=== PATIENT | female | born 1960 | race Caucasian/White ===

== ENCOUNTER → 2017-07-28 | Outpatient (CLI) | payer BC | END | disposition home or self-care (01) | LOC: MAMMO 11:38 | DX: Z12.31 Encounter for screening mammogram for malignant neoplasm of breast (principal) ==

== ENCOUNTER → 2018-06-15 | Outpatient (CLI) | payer BC | END | disposition home or self-care (01) | LOC: US 10:13 | DX: I70.203 Unspecified atherosclerosis of native arteries of extremities, bilateral legs (principal); Z95.820 Peripheral vascular angioplasty status with implants and grafts; Z72.0 Tobacco use ==

== ENCOUNTER 2019-01-09 19:50 | Inpatient (IN) | payer BC ==
[~2019-01-09] VITALS: Ht 170.1 cm; Wt 56.8 kg
--- NOTE | ~2019-01-09 | PR ---
[place], [place] PROGRESS NOTE [facility]: [id number] UNIT #: [id number] ROOM: [facility] DOCTOR: TITI NULL,ALEXIS BIRTHDATE: [birth year] DOS: 01/11/2019 CARDIOLOGY FOLLOWUP VISIT NOTE REASON FOR VISIT: NSTEMI. This note is an addendum to the note done by Dr. Baptiste. I personally examined and assessed her today. Medications and allergies reviewed and I independently performed examination. SUBJECTIVE: The patient is somewhat drowsy and not answering questions as at bedside and discussed with him in detail. OBJECTIVE: PERTINENT CARDIAC EXAM: Regular rhythm, no S3, grade 1/6 systolic murmur. EXTREMITIES: Showed no edema. IMPRESSION: 1. Non-ST myocardial infarction. 2. Alcohol abuse with alcohol withdrawals. 3. Pneumonia. 4. Sinus tachycardia. RECOMMENDATIONS: 1. Continue current medications. 2. She was scheduled for cardiac catheterization on Monday. 3. Risk and complication of cardiac catheterization was discussed with her , Mark, who is at bedside and all questions were answered. ALEXIS WALLS MD CM:PNTRANS [id number] LAEXIS WALLS MD 01/12/19 1249 interface
--- NOTE | ~2019-01-09 | PR ---
[place], [place] PROGRESS NOTE NAME: ISADORA COLON [facility] #: [id number] UNIT #: [id number] ROOM: [facility] DOCTOR: SOUMYA NIETO MD BIRTHDATE: [birth year] DOS: 01/14/2019 CARDIOLOGY PROGRESS NOTE SUBJECTIVE: The patient was seen today 01/14/2019 at her bedside in the intensive care unit for followup of a recent non-ST elevation myocardial infarction and possible diastolic heart failure. She is a 58-year-old woman who presented to the hospital on 01/09/2019 for fatigue, decreased appetite and cough. There was a concern that she might have the flu. She reported subjective fevers, chills and dyspnea. Initially, her troponin level was significantly elevated at 7.17 and abdirashid to a peak of 9.54. Even though she did not have any acute EKG changes or chest discomfort. An echocardiogram was obtained, which showed normal left ventricular size and wall motion with stage 2 diastolic dysfunction. The patient does have a history of heavy alcohol abuse, and while in the hospital, did go into alcohol withdrawal. She is currently sedated and on BiPAP. The nurses report that she does become anxious and uncooperative when the medications wear off. She continues to deny chest pain, but she does not answer questions fully or appropriately. In the hospital, she has had episodes of pulmonary vascular congestion. She has been diuresed on a few occasions with some improvement. Plans had been made for her to undergo cardiac catheterization; however, when report was called to the [facility] labor relations officer she was turned down for catheterization today as being an inappropriate candidate. She cannot fully cooperate with the catheterization and is hemodynamically stable. The labor relations officer did recommend that she be medically stabilized prior to any transfer. PHYSICAL EXAMINATION: VITAL SIGNS: Today, her pulse is 115 and regular, blood pressure is 149/95. She is afebrile. NECK: Supple. She does have jugular distention with hepatojugular reflux. Carotids are full. LUNGS: Respirations are unlabored, but she does have BiPAP in place. Her chest has decreased breath sounds at the bases. HEART: Has a regular rhythm with an S4 gallop, but no S3 or obvious murmur. ABDOMEN: Soft. EXTREMITIES: Showed no edema. I reviewed her chest x-ray from yesterday and it does show apparent vascular congestion, which had worsened compared to a chest x-ray done on 01/12/2019. LABORATORY DATA: Hemoglobin today is 10.8, white count 12,400, platelet count 293,000. Blood gas this morning, pH 7.385, pCO2 of 40.4, pO2 of 157, bicarbonate 23.7. Sodium is 142 yesterday, potassium is 4.1, chloride was 110, CO2 of 22, BUN 29, creatinine 0.74, alkaline phosphatase was mildly elevated, but the other liver enzymes were normal and bilirubin was normal. Albumin was low at 2.3. Her initial drug screen was positive for cannabinoids only. [place], [place] PROGRESS NOTE NAME: ISADORA COLON UNIT #: [id number] ROOM: [facility] DOCTOR: SOUMYA NIETO MD BIRTHDATE: [birth year] IMPRESSION: 1. Presentation with flu-like symptoms. Influenza nasal swab was negative for influenza A and B. Blood cultures were also negative. 2. History of alcohol abuse. 3. Acute alcohol withdrawal. 4. Elevation in troponin consistent with acute myocardial injury and most suggestive of an acute myocardial infarction (NSTEMI). PLAN: The patient is hemodynamically stable, although she does appear to be mildly in heart failure. We will diurese her gently today and increase her beta josiane. She is also on an DIANA inhibitor, statin and aspirin. Once she is medically stabilized and has completed alcohol withdrawal then risk stratification and possible catheterization will be reconsidered. I thank the hospitalist physicians for asking our advice regarding her care. SOUMYA NIETO MD CM:PNTRANS [id number] SOUMYA NIETO MD 01/14/19 1439 interface
--- NOTE | ~2019-01-09 | EKG ---
[place], [place] ELECTROCARDIOGRAM REPORT NAME: ISADORA COLON UNIT #: [id number] ROOM: [facility] DOCTOR: EVENS DRAFT REPORT BIRTHDATE: [birth year] [facility] Test Date: 2019-01-10 Test Time: 00:57:42 Pat Name: ISADORA COLON Department: Room: [facility] Gender: F Drum Attendant: Obed Rodriguez : 1960 Requested By: CARLOS CHINCHILLA Order Number: [id number] Reading MD: Katelin Shah Measurements Intervals [place] Rate: 89 P: 52 OR: 144 QRS: 69 QRSD: 85 T: 75 QT: 382 QTc: 465 Interpretive Statements Sinus rhythm Repol abnrm suggests ischemia, diffuse leads Baseline wander in lead(s) V6 No previous ECG available for comparison Electronically Signed On 01-11-2019 12:46:41 PST by Katelin Shah CM:EKGRPT:ELECTROCARDIOGRAM REPORT 0057 1246 CARLOS CHINCHILLA EPIPHANY DRAFT REPORT CARLOS CHINCHILLA
--- NOTE | ~2019-01-09 | CON ---
[place], [place] REPORT OF CONSULTATION NAME: ISADORA COLON UNIT #: [id number] ROOM: [facility] DOCTOR: ALEXIS WALLS MD BIRTHDATE: [birth year] DOS: 01/10/2019 CARIOLOGY CONSULT REASON FOR CONSULTATION: Elevated cardiac enzymes. CLINICAL HISTORY: The patient is a 58-year-old patient presented to the hospital for some fatigue, body aches and nonproductive cough as well as headaches, but she had some contact with the patient's flu and her symptoms started afterwards, but she denies any chest pains. She was found to have elevated cardiac troponins and Cardiology consulted. She was also noted to have some possible alcohol withdrawals due to her significant alcohol abuse. At the time of examination, the patient was alert, but denies any chest pain or shortness of breath. She is somewhat answering appropriately. At home, she has no chest pain, shortness of breath, no heart palpitation, no dizziness, no PND, no orthopnea. No nausea, vomiting, diarrhea. No bladder or bowel symptoms. No neurologic symptoms, no visual symptoms. Occasional lightheadedness. REVIEW OF SYSTEMS: Review of the 10 systems negative except as mentioned above. Again, patient's mental status was somewhat clouded and no family at bedside. PAST MEDICAL HISTORY: Hypertension, dyslipidemia, varicose veins. PAST SURGICAL HISTORY: History of vascular stent. SOCIAL HISTORY: The patient has significant alcohol use. She states she drinks between 12-24 beers a day. History of marijuana use and also tobacco use of 1 to 1-1/2 pack a day. FAMILY HISTORY: Father from colon cancer and heart disease. Mother has diabetes. ALLERGIES: The patient is allergic to PENICILLIN. HOME MEDICATIONS: Reviewed. PHYSICAL EXAMINATION: VITAL SIGNS: Blood pressure 149/83, pulse 83, respiration is 20. Weight 86.8 kilos. GENERAL: Alert, comfortable, in no acute distress. HEAD AND NECK: Neck is supple, no distended neck veins, no carotid bruit. Pupils round, equal. No jaundice. Tongue was moist and pharynx clear. CHEST: Symmetrical, nontender. LUNGS: Few scattered rhonchi, but good air entry bilaterally. HEART: Regular rhythm, no S3. Grade 1/6 systolic murmur. ABDOMEN: Benign, nontender. Bowel sounds normal. EXTREMITIES: Showed no edema. Distal pulses palpable. [place], [place] REPORT OF CONSULTATION NAME: ISADORA COLON [facility] #: [id number] UNIT #: [id number] ROOM: [facility] DOCTOR: TITI NULL,ALEXIS BIRTHDATE: [birth year] SKIN: Warm and dry. No cyanosis, no clubbing. RECTAL: Deferred. GENITOURINARY: Deferred. NEUROLOGIC: The patient is alert, oriented. No focal neurologic deficit. REVIEW OF THE DIAGNOSTIC TESTS: EKG shows sinus tachycardia with lateral ST-T changes. CBC, chemistry imaging studies reviewed. Cardiac troponins are 7.1, 9.5, 8.6. Potassium 3.7, BUN 16, creatinine 0.78. WBC count 19.3 thousand. Hemoglobin 13.7, platelets 185,000. Total CPK 205 and CK-MB 46.8. IMPRESSION: 1. Non-ST elevation myocardial infarction. 2. Alcohol abuse with positive early withdrawals. 3. Hypertension. 4. Tobacco smoking. 5. Dyslipidemia. 6. History of diverticulosis. RECOMMENDATIONS: 1. The patient denies any chest pain. Her blood pressure and heart rates are stable. 2. A 2D echo was ordered. 3. Continue aspirin, beta blockers, and heparin. 4. I briefly discussed with her risk and benefits of cardiac catheterization. I doubt she has a total understanding for cardiac catheterization risks, benefits, I will wait for her family and we will discuss her cardiac catheterization and if the family and she agrees, we will plan for cardiac catheterization, Monday; however, currently she did not have any chest pain and vital signs are stable. 5. The 2D echo is pending. ALEXIS WALLS MD CM:CONSTR:REPORT OF CONSULTATION 01/11/19 0786 interface
--- NOTE | ~2019-01-09 | CON ---
[place], [place] REPORT OF CONSULTATION [id number] UNIT #: [id number] ROOM: [facility] DOCTOR: BANDAR NUNEZ MD BIRTHDATE: [birth year] DOS: 01/14/2019 PULMONARY CONSULTATION, EVALUATION AND MANAGEMENT CONSULTATION REQUESTED BY: Hospitalist service. REASON FOR CONSULTATION: For the assessment of her respiratory failure, change in mental status. The patient is currently admitted and treated in Intensive Care Unit. History could not be obtained for the patient. All the history documented in my consultation is review of the medical record done by other physician notes and the nurse's notes. HISTORY OF PRESENT ILLNESS: This is a 58-year-old white female patient who was admitted to the hospital from the date of 01/09/2019, patient has been admitted to the hospital as he has been noted lack of appetite with progressive fatigue and weak and nonproductive cough reported. Flu-like symptoms was reported. She has been admitted to the hospital. The patient noted with abnormal troponin as well with the respiratory problem. She was also noted with hyponatremia secondary to possible alcohol use for this patient and dependence, also treated for the alcohol withdrawal. She was planned for transfer today to [facility] in [place] for further cardiac workup, normal troponin, non-ST segment elevation myocardial infarction, in last evening the patient has been noted hypoxia with agitation. She has been started on the BiPAP and that has been used by the patient. She has not been noted opening her eyes while following vocal commands and noted somewhat restless and thrashing on the bed this morning. REVIEW OF SYSTEMS: Remaining systems were reviewed, cannot be completed because of inability to communicate with the patient. PAST MEDICAL HISTORY: 1. Noted with chronic long-term alcohol dependence. 2. Essential hypertension. 3. Hyperlipidemia. 4. Nicotine dependence. 5. Varicose veins. 6. Peripheral arterial disease. PAST SURGICAL HISTORY: Reported as peripheral vascular disease, intervention and stent placement. SOCIAL HISTORY: The patient noted chronic alcohol use to 10 beers a day since very young. The patient was also reported history of marijuana use. Tobacco use was reported for a long time. The patient up to 1.5 pack of cigarettes per day. She lives at home by herself. FAMILY HISTORY: Reported as father of complications of colon cancer. Mother living with history of diabetes mellitus reported. MEDICATIONS: From home were reported as Plavix, lisinopril and metoprolol [place], [place] REPORT OF CONSULTATION NAME: [facility] COLON [facility]: [id number] UNIT #: [id number] ROOM: [facility] DOCTOR: SHAHLA ANTONY MD,BANDAR BIRTHDATE: [birth year] tartrate. CURRENT MEDICATION: Which were administered for use of metoprolol tartrate, Protonix, Lipitor, Solu-Medrol 60 mg b.i.d., lisinopril, Mucinex, nicotine replacement patches, aspirin, DuoNeb, Rocephin, Zithromax and others. DRUG ALLERGIES: The patient noted ALLERGY TO PENICILLIN CAUSING HIVES. PHYSICAL EXAMINATION: GENERAL: A 58-year-old female patient currently noted somewhat restless on the bed, but no distress. BiPAP has been noted in place. Height was 5 feet 6 inches, weight of 125 pounds. BMI 19. VITAL SIGNS: The patient's temperature recorded normal. The patient in the last 48 hours, respiratory rate range between 12-40, the heart rate of 114-87 with sinus tachycardia, yesterday heart rate noted elevated up to 145 and a respiratory rate at that time were noted 40 at the time of the respiratory distress and agitation. The blood pressure ranging between 124/76-117/81. The pulse oxygen saturation on BiPAP is 94% saturation. Previously on 3 liters nasal cannula 98% saturation recorded. HEENT: Limited. Head was atraumatic. Eyes nonicterus. NECK: Supple. CARDIOVASCULAR: S1, S2 audible. LUNGS: The patient scattered crackles with decreased breath sounds, occasional wheezing. ABDOMEN: Soft, nontender. Bowel sounds present. EXTREMITIES: The patient was noted without any acute edema. MUSCULOSKELETAL: The patient was noted without any acute deformities. CENTRAL NERVOUS SYSTEM: Restless test noted. Further examination could not be performed. LABORATORY DATA: The admission labs for this patient, the influenza A and B nasal washing antigen 01/09/2019 was negative. CBC of 01/09/2019, WBC count 17,000, hemoglobin and hematocrit normal, platelet count was normal. Lactic acid at that time was 1.6. CMP on admission as well on 01/09/2018, glucose 136, BUN and creatinine normal, sodium 125, chloride of 93. The AST 68, ALT 126, alkaline phosphatase 411. ETOH level noted less than 3. Troponin first set 7.10. The maximal troponin was noted in 24 hours as 9.16. CMP that was done yesterday as BUN 29, creatinine normal, glucose 140. Sodium was normal. Potassium was normal. AST, ALT were normal. CBC that was done this morning, WBC count 12.8, hemoglobin 10.8, platelet count was normal 293,000. The arterial blood gas that I ordered, pH of 7.38, pCO2 of 40, pO2 of 157 with BiPAP. The radiology data testing which was done for this patient was personally reviewed from the PACs images. The chest x-ray that was done this morning, congestive noted with increased pulmonary venous congestion marking noted in the lungs. There was no significant visible pleural fluid were noted. There was an area of consolidation, infiltration. CT of the chest was also done on 01/09/2019 were reviewed, shows intrafissural nodule noted in the left major fissure measured as 1 x 0.5 cm in size with elliptical shape. In addition to that, there is a 4 mm nodule noted in the right minor fissure for the patient as well. Mild enlargement lymph node bilaterally as well as in the right hilar [place], [place] REPORT OF CONSULTATION NAME: ISADORA COLON UNIT #: [id number] ROOM: [facility] DOCTOR: SHAHLA ANTONY MD,[facility] BIRTHDATE: [birth year] area, which showed a dementia and lymph node 1.2 cm in size. A small basilar area of infiltration atelectasis was noted. IMPRESSION: 1. The patient who has been currently admitted to the hospital, was noted with multiple ongoing problems with the patient including acute respiratory failure with fluid overload, congestive heart failure. 2. Acute non-ST segment elevation myocardial infarction. 3. Hyponatremia related to the chronic alcohol dependence is resolved. 4. Alcohol withdrawal as well. There were no acute change in mental status. The patient with multifactorial secondary to medication use and other etiology. 5. FPC tobacco use. 6. Pulmonary nodule noted in the right and the left side as well as a lymph node enlargement. At this time required further assessment as an outpatient setting to exclude malignant process and other with history of longstanding tobacco use. 7. Acute exacerbation of chronic obstructive pulmonary disease, history of longstanding tobacco use. PLAN OF MANAGEMENT: The patient would be recommended about diuretic therapy p.r.n. to improve the current fluid overload, congestive heart failure. Avoid any excessive fluid supplementation to prevent the fluid overload. Continue the management of the current non-ST segment with history of myocardial infarction. The patient conservatively including the heparin, therapeutic dose, which is administered. The PTT noted therapeutic at 82 today. The BiPAP would be used as needed. Managing for any aspiration because the patient's change in mental status. Other additional treatment changes will be recommended based on progression of the illness. Continue nicotine replacement patches. Outpatient assessment with pulmonary nodule, lymph node biopsy needs to be done. Supportive care, other therapy, plan of management. The BiPAP could be used p.r.n. in case of further respiratory distress. The dose of the Solu-Medrol will be decreased to 40 mg b.i.d. dosing. Thanks for allowing me to participate in the care of this patient. BANDAR GALE MD CM:CONSTR:REPORT OF CONSULTATION 1245 01/22/19 0804 interface
--- NOTE | ~2019-01-09 | EKG ---
[place], [place] ELECTROCARDIOGRAM REPORT NAME: ISADORA COLON UNIT #: [id number] ROOM: [facility] DOCTOR: EVENS DRAFT REPORT BIRTHDATE: [birth year] [facility] Test Date: 2019-01-16 Test Time: 00:25:38 Pat Name: ISADORA COLON Department: Room: [place] [address] Gender: F Clinical Biostatistician: Nelly Lujan : 1960 Requested By: REILLY HAWTHORNE Order Number: [id number] Reading MD: Heraclio Burt MD Measurements Intervals [place] Rate: 116 P: 53 MO: 119 QRS: 70 QRSD: 78 T: QT: 337 QTc: 469 Interpretive Statements Sinus tachycardia Probable left atrial enlargement Probable LVH with secondary repol abnrm Baseline wander in lead(s) V6 Compared to ECG 01/11/2019 13:42:38 Atrial premature complex(es) no longer present Electronically Signed On 01-16-2019 16:51:14 PST by Heraclio Burt MD CM:EKGRPT:ELECTROCARDIOGRAM REPORT 0025 1651 REILLY FARRIS DRAFT REPORT REILLY HAWTHORNE DO
--- NOTE | ~2019-01-09 | EKG ---
[place], [place] ELECTROCARDIOGRAM REPORT NAME: ISADORA COLON UNIT #: [id number] ROOM: [facility] DOCTOR: EVENS DRAFT REPORT BIRTHDATE: [birth year] [facility] Test Date: 2019-01-10 Test Time: 05:12:28 Pat Name: ISADORA COLON Department: Room: [facility] Gender: F Medical Driver: Nelly Lujan : 1960 Requested By: CARLOS CHINCHILLA Order Number: [id number] Reading MD: Katelin Shah Measurements Intervals [place] Rate: 115 P: 46 [place]: 139 QRS: 59 QRSD: 84 T: -28 QT: 331 QTc: 458 Interpretive Statements Sinus tachycardia Lateral ST/T changes Electronically Signed On 01-11-2019 12:48:38 PST by Katelin Shah CM:EKGRPT:ELECTROCARDIOGRAM REPORT 0512 1248 CARLOS HORNER DRAFT REPORT CARLOS CHINCHILLA
--- NOTE | ~2019-01-09 | PR ---
[place], [place] PROGRESS NOTE NAME: ISADORA COLON [facility] #: [id number] UNIT #: [id number] ROOM: [facility] DOCTOR: SHAHLA ANTONY MD,BANDAR BIRTHDATE: [birth year] DOS: 01/15/2019 PULMONARY PROGRESS NOTE SUBJECTIVE: The patient remains in Intensive Care Unit, has been treated currently with oxygen supplementation, the BiPAP at times. She has not been reported with any acute hemodynamic instability, noted respiratory distress. The patient's mental status still remains unchanged. She has been reported with some abdominal problems. The patient has a CT scan of the abdomen completed last night. She has not been reported with any other major changes in mental status. She has been noted with hypertensive response with the tachycardia intermittently as well as low-grade fever. She has been noted with pneumonia in the lower lung and a CT scan of the abdomen and pelvis done with the lower portion of the CT of thorax included in that review. She has been currently getting broad-spectrum intravenous antibiotic for the hospital-acquired pneumonia, etiology is gram positive and gram-negative organisms. She has been previously receiving the Rocephin and Zithromax that has been discontinued. REVIEW OF SYSTEMS: Could not be completed since the patient does not give me any history or does not have any verbal communication at this time. She keeps her eyes closed, moans a few words as well. OBJECTIVE: VITAL SIGNS: The patient's temperature, max of 100.2 degrees Fahrenheit/99 degree Fahrenheit, respiratory rate of 16-34, heart rate of 132-102. HEENT: Shows head was atraumatic. Eyes nonicterus. NECK: Supple. CARDIOVASCULAR: S1, S2 audible. LUNGS: Noted basilar crackles. There was no wheezing. ABDOMEN: Soft, nontender. Bowel sounds present. It was flat. EXTREMITIES: Noted without acute edema. MUSCULOSKELETAL: Noted without any deformities. CENTRAL NERVOUS SYSTEM: The patient currently has change in mental status, but does not have any apparent focal neurologic deficit. The patient is moving upper and lower extremities at her own will. VISIBLE SKIN: No lesions or rashes. LABORATORY DATA: Assessed for this patient at today's visit. The ammonia level noted 16 this morning. Troponin 3.125 with gradual reduction noted from previous evaluation. CMP that was done on 01/15/2019; glucose 168, BUN 37, creatinine was normal. Sodium 148. Potassium was normal. Alkaline phosphatase 192. CBC that was done on 01/15/2019; WBC count 15.5, hemoglobin 11.7, hematocrit 34.9, platelet count was normal. Blood culture from the 01/09/2019 shows no bacterial growth. Final results reported at the present time. The CT scan of the abdomen and pelvis that was done early this morning was noted with evidence of area of consolidation, infiltration noted in the lungs bilaterally, small bilateral pleural fluid. The abdominal structure was described without any acute abnormalities. The chest x-ray that was done this morning was noted with interval change with infiltration noted in the lungs bilaterally with interstitial edema would be considered as well. Small bilateral pleural fluid [place], [place] PROGRESS NOTE NAME: ISADORA COLON UNIT #: [id number] ROOM: [facility] DOCTOR: BANDAR NUNEZ MD BIRTHDATE: [birth year] state not visible. IMPRESSION: The patient who has been currently noted with: 1. Acute aspiration pneumonia, hospital-acquired etiology. 2. History of chronic alcohol dependence with withdrawal of the alcohol. 3. Mental status, multifactorial. 4. Mild erythema secondary to diuretics as well. 5. Acute exacerbation of chronic obstructive pulmonary disease as well treated with the steroids and bronchodilators. PLAN OF MANAGEMENT: Agree with the use of meropenem and vancomycin, primary antibiotic. Discontinuation of other antibiotic has been ordered and the blood culture were obtained for this patient as well. Monitor hemodynamics. Follow the recommendation of Cardiology, non-ST segment myocardial infarction management conservatively at this time. She has been currently receiving the unfractionated therapeutic heparin noted with therapeutic PTT. Titrate supplementation of oxygen and maintain blood pressure 90% or greater. Other therapy, plan of management and care plan to be continued with the progression of illness. Keep the patient in the Intensive Care Unit at the present time. Further care and other therapy, plan and management. Past family, social, surgical history are reviewed, just they remain unchanged as well. The assessment and management were discussed with primary care attending of this patient, Alf Mccall. BANDAR GALE MD CM:PNTRANS [id number] BANDAR ANTONY MD 01/15/19 2319 interface
--- NOTE | ~2019-01-09 | EKG ---
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
--- NOTE | ~2019-01-09 | EKG ---
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
--- NOTE | ~2019-01-09 | EKG ---
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
[2019-01-09 19:54] VITALS: BP 129/83
[2019-01-09] MEDS ORDERED: METOPROLOL TAR100 M1 PO (20:06)
[2019-01-09] MEDS ORDERED: CLOPIDOGREL75 MG PO (20:06)
[2019-01-09] MEDS ORDERED: LISINOPRIL10 M1 PO (20:06)
[2019-01-09 20:37] LABS: HEMATOCRIT 40.7 % (37.0-47.0); HEMOGLOBIN 14.7 g/dl (12.0-16.0); MEAN CELL VOLUME 92.3 fl (81.0-99.0); MEAN CORPUSCULAR HGB 33.3 pg (27.0-31.0); MEAN CORPUSCULAR HGB CONC 36.1 g/dl (33.0-37.0); MEAN PLATELET VOLUME 10.2 fl (9.6-12.3); PLATELET COUNT AUTOMATED 176 10*3/uL (130-400); RED BLOOD COUNT 4.41 10*6/uL (4.10-5.10); RED CELL DISTRI WIDTH 12.2 % (0-14.5)
[2019-01-09 20:43] VITALS: BP 123/76
--- NOTE | 2019-01-09 20:43 | NUR ---
PT PROMPTED FOR URINE SPECIMEN.
[2019-01-09 20:58] LABS: PLATELET SUFFICIENCY NORMAL (NORMAL); TOTAL CELLS COUNTED 100 #CELLS
[2019-01-09 21:04] LABS: ALBUMIN 2.6 gm/dl (3.1-4.5); ALKALINE PHOSPHATASE 411 U/L (45-117); BUN 18 mg/dl (7-24); CHLORIDE 93 mmol/L (98-107); CREATININE 0.87 mg/dL (0.55-1.02); LIPASE 160 U/L (73-393); POTASSIUM 3.5 mmol/L (3.5-5.1); SGOT/AST 68 IU/L (3-35); SGPT/ALT 126 U/L (12-78); SODIUM 125 mmol/L (136-145); TOTAL PROTEIN 7.5 gm/dL (6.4-8.2)
[2019-01-09 21:09] LABS: ACETAMINOPHEN (TYLENOL) < 5.0 ug/ml (10-30); ETHYL ALCOHOL < 3.0 mg/dl (<3)
--- NOTE | 2019-01-09 21:18 | NUR ---
LAB CALLED WITH CRITICAL TROPONIN 7.170.FRANCK ALBARADO NOTIFIED.
--- NOTE | 2019-01-09 21:44 | NUR ---
PT PROMPTED AGAIN FOR URINE SPECIMEN.PT AMBULATORY TO RESTROOM, WITH PT.
--- NOTE | 2019-01-09 21:53 | NUR ---
URINE SPECIMEN COLLECTED VIA CLEAN CATCH,LABELED AND SENT TO LAB.IV FLUIDS CONTINUE TO INFUSE. REMAINS AT BEDSIDE.LIGHTS DIMMED FOR COMFORT.
[2019-01-09 21:54] VITALS: BP 155/92
[2019-01-09 21:57] LABS: BILIRUBIN 1+ (NEGATIVE); BLOOD 1+ (NEGATIVE); CLARITY SL CLOUDY (CLEAR); COLOR YELLOW (YELLOW); GLUCOSE NEGATIVE (NEGATIVE); KETONE 1+ (NEGATIVE); LEUKO ESTERASE TRACE (NEGATIVE); NITRITE NEGATIVE (NEGATIVE); UROBILINOGEN 0.2 E.U./dl (0.2-1.0)
[2019-01-09 22:06] LABS: BACTERIA 2+; HYALINE CAST 0-2
[2019-01-09 22:12] VITALS: BP 128/58
[2019-01-09 22:14] LABS: URINE AMPHETAMINES < 1000 (1000ng/ml); URINE BARBITURATES < 200 (200ng/ml); URINE BENZODIAZEPINES < 200 (200ng/ml); URINE CANNABINOIDS (THC) > 50 (50ng/ml); URINE COCAINE < 300 (300ng/ml); URINE METHADONE < 300 (300ng/ml); URINE OPIATES < 300 (300ng/ml)
[2019-01-09 22:15] LABS: URINE PHENCYCLIDINE < 25 (25ng/ml)
[2019-01-09 22:53] VITALS: BP 144/84
[2019-01-09 23:12] VITALS: BP 130/70
[2019-01-10] VITALS (9 sets, daily range): BP systolic 129–156; BP diastolic 67–91
[2019-01-10 00:11] LABS: CKMB 46.8 ng/ml (0.5-3.6); TROPONIN I 9.54 ng/ml (<0.045)
--- NOTE | 2019-01-10 00:11 | NUR ---
CRITICAL LABS TROP 9.540.. CKMB 46.8.. KELLY ALBARADO PA-C NOTIFIED.. AND NURSE OLIVIA NOTIFIED
[2019-01-10 00:24] LABS: ACT PARTIAL THROMBO TIME 26.8 SECONDS (20.8-31.5); INTERNATIONAL NORM RATIO 1.1 (2.0-3.5)
--- NOTE | 2019-01-10 01:30 | NUR ---
PT LEFT PASSWORD OF "CRISTHIANONY"
--- NOTE | 2019-01-10 01:38 | NUR ---
A 58 YEAR OLD FEMALE PATIENT, admitted to ICCU, under the services of JH Haider DO with a diagnosis of N-STEMI,HYPONATREMIA,BILATERAL PNEUMONIA,DEHYDRATION. Chief complaint is N/V/D SINCE MONDAY OR MONDAY. Patient arrived via CART WITH RN from ER. Monitor applied. Initial assessment completed. Vital signs taken and recorded. See assessment for past medical history, medications and allergies. Patient and/or family oriented to unit. [facility]U visitation policy reviewed. Clothing/patient valuable form completed. GHADA QUIGLEY
--- NOTE | 2019-01-10 01:42 | NUR ---
infusion of zithromax completed upon arrival to icu.
--- NOTE | 2019-01-10 03:32 | NUR ---
CALLED TO [facility] TO VERIFY CONSULT AND TO MAKE AWARE OF NEW TROPONIN RESULT. DR WALLS FACILITIES SUPERVISOR.
--- NOTE | 2019-01-10 03:39 | NUR ---
SPOKE WITH DR WALLS ABOUT LABS AND PATIENTS CONDITION. NO NEW ORDERS RECIEVED
--- NOTE | 2019-01-10 05:27 | NUR ---
PATIENT MEDICATED WITH ATIVAN PER DRS ORDERS FOR RESTLESSNESS AND ANXIETY. SEE EMAR.
--- NOTE | 2019-01-10 05:30 | NUR ---
DR. HAWTHORNE HERE AND TALKED WITH DR. WALLS OVER PHONE REGARDING PT RECENT EKG AND CHANGES.
[2019-01-10 05:43] LABS: ALBUMIN 2.3 gm/dl (3.1-4.5); ALKALINE PHOSPHATASE 357 U/L (45-117); BUN 16 mg/dl (7-24); CHLORIDE 101 mmol/L (98-107); CHOLESTEROL 111 mg/dL (<200); CREATININE 0.78 mg/dL (0.55-1.02); PHOSPHOROUS 3.3 mg/dL (2.5-4.9); POTASSIUM 3.7 mmol/L (3.5-5.1); SGOT/AST 45 IU/L (3-35); SGPT/ALT 92 U/L (12-78); SODIUM 130 mmol/L (136-145); TOTAL PROTEIN 6.8 gm/dL (6.4-8.2); TRIGLYCERIDES 130 mg/dl (<150); VLDL CHOLESTEROL 26 mg/dL (6-40)
[2019-01-10 05:44] LABS: CPK 186 U/L (26-192); FREE T4 1.56 ng/dl (0.76-1.46); HDL CHOLESTEROL 19 mg/dl (40-60); LDL CHOLESTEROL 66 mg/dL (9-159)
[2019-01-10 06:00] LABS: HEMATOCRIT 39.5 % (37.0-47.0); HEMOGLOBIN 13.7 g/dl (12.0-16.0); MEAN CELL VOLUME 93.8 fl (81.0-99.0); MEAN CORPUSCULAR HGB 32.5 pg (27.0-31.0); MEAN CORPUSCULAR HGB CONC 34.7 g/dl (33.0-37.0); MEAN PLATELET VOLUME 10.8 fl (9.6-12.3); PLATELET COUNT AUTOMATED 185 10*3/uL (130-400); RED BLOOD COUNT 4.21 10*6/uL (4.10-5.10); RED CELL DISTRI WIDTH 12.3 % (0-14.5); WHITE BLOOD COUNT 19.3 10*3/uL (4.8-10.8)
[2019-01-10 06:42] LABS: ACT PARTIAL THROMBO TIME 46.7 SECONDS (20.8-31.5); INTERNATIONAL NORM RATIO 1.1 (2.0-3.5)
[2019-01-10 07:00] LABS: BASOPHILS 1 % (0-1); PLATELET SUFFICIENCY NORMAL (NORMAL); TOTAL CELLS COUNTED 100 #CELLS
[2019-01-10 07:01] LABS: BURR CELLS MODERATE
--- NOTE | 2019-01-10 07:56 | NUR ---
PATIENT VERY RESTLESS AND AGITATED. PULLING AT GOWN,COVERS. KEEPS SAYING "FUCK"! THRASHING AROUND IN BED. RN ATTEMPTING TO REORIENT PATIENT. UNSUCCESSFUL. MEDICATED WITH ATIVAN IV PER PRN ORDER. WILL CONTINUE TO MONITOR.
[2019-01-10 08:28] LABS: VITAMIN D, 25-HYDROXY 17.9 ng/mL (30-100)
--- NOTE | 2019-01-10 08:34 | NUR ---
PATIENT OFF THE FLOOR FOR OTHER TESTING, NOT AVAILABLE FOR ECHO.
--- NOTE | 2019-01-10 09:00 | NUR ---
Tire Rebuilder in to see patient. She is currently not in her room. Will follow up at a later time.
--- NOTE | 2019-01-10 12:26 | NUR ---
PATIENT RESTLESS/AGITATED AGAIN AT THIS TIME. PULLING AT IVS, PULLING GOWN OFF. HR INCREASING TO 120'S. MEDICATED WITH ATIVAN PER PRN ORDER. WILL CONTINUE TO MONITOR.
--- NOTE | 2019-01-10 17:54 | NUR ---
PATIENT RESTLESS AGAIN AT THIS TIME. HR IN THE 130-140'S. MEDICATED WITH ATIVAN PER PRN ORDER. WILL CONTINUE TO MONITOR.
--- NOTE | 2019-01-10 21:40 | NUR ---
PATIENT MEDIATED WITH ATIVAN PER DRS ORDERS SEE EMAR
--- NOTE | 2019-01-10 23:30 | NUR ---
PATIENT VERY RESTLESS AND FIDGETING AT THIS TIME. IV ATIVAN GIVEN PER DRS ORDERS. SEE EMAR. RN WILL CONTINUE TO MONITOR THIS PATIENT.
[2019-01-11] VITALS (12 sets, daily range): BP systolic 110–164; BP diastolic 65–105
--- NOTE | 2019-01-11 | NUR ---
DR GRIMALDO MADE AWARE OF ELEVATED HEARTRATE AND ELEVATED BP READING. ORDERS RECIEVED.
--- NOTE | 2019-01-11 00:14 | NUR ---
PATIENT GIVEN ONE TIME DOSE OF ATIVAN PER DRS ORDERS. SEE EMAR. RN WILL CONTINUE TO MONITOR
--- NOTE | 2019-01-11 00:20 | NUR ---
DR GRIMALDO ON THE FLOOR TO ASSESS PATIENT AT THIS TIME. IV FLUIDS STOPPED PER DRS ORDERS. 3L NASAL CANNULA APPLIED TO PATIENT D/T PO2 DROPPING TO 88% AFTER ATIVAN ADMINISTRATION. PO2 LEVEL CURRENTLY AT 92% PATIENT ALSO AUDIBLY WHEEZING AND C/O SHORTNESS OF BREATH. RN WILL CONTINUE TO MONITOR THIS PATIENT
--- NOTE | 2019-01-11 01:28 | NUR ---
PATIENT MEDICATED WITH 1 TIME DOSE OF ATIVAN PER DRS ORDERS. SEE EMAR. RN WILL CONTINEU TO KAITLYNN
--- NOTE | 2019-01-11 04:10 | NUR ---
PATIENT MEDICATED WITH ATIVEN PER DRS ORDERS. RN WILL CONTINUE TO MONITOR
[2019-01-11 05:57] LABS: ALBUMIN 2.1 gm/dl (3.1-4.5); ALKALINE PHOSPHATASE 280 U/L (45-117); BUN 13 mg/dl (7-24); CHLORIDE 108 mmol/L (98-107); PHOSPHOROUS 3.4 mg/dL (2.5-4.9); POTASSIUM 3.6 mmol/L (3.5-5.1); SGOT/AST 23 IU/L (3-35); SGPT/ALT 57 U/L (12-78); SODIUM 136 mmol/L (136-145); TOTAL PROTEIN 6.3 gm/dL (6.4-8.2)
[2019-01-11 06:19] LABS: BASO % 0.3 % (0.0-1.0); EOS # 0.4 10*3/uL (0.0-0.4); EOS % 2.8 % (1.0-4.0); HEMATOCRIT 35.7 % (37.0-47.0); HEMOGLOBIN 12.3 g/dl (12.0-16.0); LYMPH # 1.8 10*3/uL (1.3-4.4); LYMPH % 11.6 % (27.0-41.0); MEAN CELL VOLUME 94.7 fl (81.0-99.0); MEAN CORPUSCULAR HGB 32.6 pg (27.0-31.0); MEAN CORPUSCULAR HGB CONC 34.5 g/dl (33.0-37.0); MEAN PLATELET VOLUME 10.8 fl (9.6-12.3); MONO # 0.4 10*3/uL (0.1-1.0); MONO % 2.8 % (3.0-9.0); NEUT # 12.8 10*3/uL (2.3-7.9); NEUT % 81.4 % (47.0-73.0); PLATELET COUNT AUTOMATED 188 10*3/uL (130-400); RED BLOOD COUNT 3.77 10*6/uL (4.10-5.10); RED CELL DISTRI WIDTH 12.9 % (0-14.5); WHITE BLOOD COUNT 15.7 10*3/uL (4.8-10.8)
--- NOTE | 2019-01-11 06:38 | NUR ---
PATIENT MEDICATED WITH ATIVAN PER DRS ORDERS. SEE EMAR/.
--- NOTE | 2019-01-11 07:50 | NUR ---
Shift chart check completed.24 HR chart check completed.
--- NOTE | 2019-01-11 08:22 | NUR ---
ON ASSESSMENT PT AROUSES TO HER NAME, DALIA BUT SAYS "NO" TO PAIN, SHORTNESS OF BREATH, OR NAUSEA. ABLE TO SAY SHE'S IN "[place]" AND WHEN QUESTIONED FURTHER ABLE TO SAY "HOSPITAL". BUT "NO" WHEN I ASKED IF SHE KNOWS WHY SHE'S HERE. HEPARIN DRIP CONTINUES AT 16UNITS/KG/HR. REMAINS TACHYCARDIC AT ALL TIMES. PULSE OX 97% ON 3L/MIN, TITRATED DOWN TO 2L/MIN.
--- NOTE | 2019-01-11 08:51 | NUR ---
WAS ABLE TO GET HER TO TAKE HER ORAL AM MEDS. SHE DOES CHEW SOME. APPLESAUCE USED TO FACILITATE.
--- NOTE | 2019-01-11 09:36 | NUR ---
JAN REYES AND TITI HAVE VISITED. NO PLANS FOR HEART CATH TODAY AT THIS TIME. NO SEIZURE ACTIVITY. NO OBVIOUS HALLUCINATIONS.
--- NOTE | 2019-01-11 11:14 | NUR ---
DR WALLS HAS VISITED. TALKED WITH PT'S ABOUT PLAN OF CARE.
--- NOTE | 2019-01-11 11:48 | NUR ---
Ent Nurse in to see patient. She is not able to appropriately answer questions. Will follow up at a later time.
--- NOTE | 2019-01-11 12:51 | NUR ---
PT'S HELPED HER TO EAT 5 BITES OF POTATO SOUP, AND 3 BITES OF YOGURT. TURNED, BRIEF CHANGED, AND REPOSITIONED IN BED. SHE DENIES ANY HALLUCINATIONS. NO SEIZURE ACTIVITY. HR BETTER SINCE ORAL METOPROLOL.
--- NOTE | 2019-01-11 13:08 | NUR ---
PT HAS INTERMITTENT WHEEZE.
--- NOTE | 2019-01-11 13:34 | NUR ---
PT HAD SUDDEN ONSET TACHYPNEA WITH WHEEZE. PULSE OX 87% ON NC 3L/MIN, INCREASED TO 4L/MIN, THEN A 50% VENTURI, THEN 100% NON-REBREATHER. DR ERVIN CALLED TO THE BEDSIDE, WHO THEN CALLED DR REYES AND DR WALLS'S RESIDENT, DR GRIGSBY.
[2019-01-11 13:48] LABS: ABG BASE EXCESS -7.5 mmol/L (-2.0-2.0); ABG O2 SATURATION 93.7 % (95-97); ARTERIAL BLOOD GAS PCO2 31.7 mmHg (35-45); ARTERIAL BLOOD GAS PH 7.345 (7.35-7.45); ARTERIAL BLOOD GAS PO2 70.6 mmHg (80-90)
--- NOTE | 2019-01-11 14:08 | NUR ---
ABG'S WERE DONE. STAT EKG AND PCXR DONE. IV LASIX GIVEN PER ORDER AND #16 YUEN CATHETER INSERTED. SHE HAD ATIVAN 0.5MG IV FOR ANXIETY. AT THIS TIME SHE IS RESTING EASIER. HR 100. PULSE OX 100%. HER HAS ARRIVED AT THE BEDSIDE AND DR ERVIN TALKED WITH HIM.
[2019-01-11 14:12] LABS: ALBUMIN 2.4 gm/dl (3.1-4.5); ALKALINE PHOSPHATASE 304 U/L (45-117); BUN 16 mg/dl (7-24); CHLORIDE 105 mmol/L (98-107); CREATININE 0.77 mg/dL (0.55-1.02); POTASSIUM 3.9 mmol/L (3.5-5.1); SGOT/AST 21 IU/L (3-35); SGPT/ALT 60 U/L (12-78); SODIUM 134 mmol/L (136-145); TOTAL PROTEIN 7.2 gm/dL (6.4-8.2)
--- NOTE | 2019-01-11 14:18 | NUR ---
DR ERVIN AWARE OF CRITICAL VALUE OF TROPONIN I WHICH IS 5.73, WHICH IS LOWER THAN THE LAST 8.62.
[2019-01-11 14:50] LABS: HEMATOCRIT 37.7 % (37.0-47.0); HEMOGLOBIN 12.8 g/dl (12.0-16.0); MEAN CELL VOLUME 95.4 fl (81.0-99.0); MEAN CORPUSCULAR HGB 32.4 pg (27.0-31.0); MEAN PLATELET VOLUME 10.7 fl (9.6-12.3); RED BLOOD COUNT 3.95 10*6/uL (4.10-5.10); WHITE BLOOD COUNT 22.1 10*3/uL (4.8-10.8)
[2019-01-11 14:56] LABS: PLATELET COUNT AUTOMATED 269 10*3/uL (130-400)
--- NOTE | 2019-01-11 15:33 | NUR ---
RESPIRATORY THERAPY HERE AND ABG'S DONE PER ORDER. REMAINS AT THE BEDSIDE. PT REMAINS ON BIPAP.
[2019-01-11 15:40] LABS: ABG BASE EXCESS -4.2 mmol/L (-2.0-2.0); ABG HCO3 18.7 mmol/l (22-26); ABG O2 SATURATION 99.3 % (95-97); ARTERIAL BLOOD GAS PH 7.425 (7.35-7.45)
[2019-01-11 15:43] LABS: ATYPICAL LYMPHS 1 % (0-0); BASOPHILS 1 % (0-1); PLATELET SUFFICIENCY NORMAL (NORMAL); TOTAL CELLS COUNTED 100 #CELLS
--- NOTE | 2019-01-11 16:17 | NUR ---
RESPIRATORY THERAPY ADJUSTED THE BIPAP.
--- NOTE | 2019-01-11 16:45 | NUR ---
DR ERVIN AWARE OF CRITICAL TROPONIN OF 5.320 WHICH IS LOWER THAN THE LAST ONE. SHE CANCELLED THE THIRD TROPONIN.
--- NOTE | 2019-01-11 17:10 | NUR ---
DR REYES REQUESTED I GIVE PT IV ATIVAN HER HR BACK TO 120'S AND SHE WAS RESTLESS. THIS HAS BEEN GIVEN. AT BEDSIDE. EXPLANATIONS TO HIM.
--- NOTE | 2019-01-11 17:35 | NUR ---
RESTING SOMEWHAT EASIER SINCE THE IV ATIVAN. FAMILY AT BEDSIDE. SHE DID HAVE A SHORT BREAK FROM THE BIPAP FOR A DRINK OF WATER BUT HER RESP RATE INCREASED.
--- NOTE | 2019-01-11 18:39 | NUR ---
CAME INTO ICCU YELLING THAT NO ONE WATCHING HIS SHE HAD BECOME RESTLESS AND SCOOTED TO THE BED WITH A RECORDED BP [address] ERVIN AT THE BEDSIDE. ATIVAN 0.5MG IV GIVEN PER DR ERVIN'S REQUEST.
--- NOTE | 2019-01-11 18:53 | NUR ---
GUY SINCE IV ATIVAN. BP 110/65.
--- NOTE | 2019-01-11 19:52 | NUR ---
NUMEROUS FAMILY MEMBERS AT BEDSIDE. PT WAS REMOVED FROM BIPAP PER 'S REQUEST AT 1941 AND PLACED ON NC4. HER PULSE OX REMAINS 96-100%. HR FROM 97/MIN TO 120'S WITH STIMULI FROM FAMILY MEMBERS.
--- NOTE | 2019-01-11 21:53 | NUR ---
UNDER PAD, AGAIN, CHANGED PT WIGGLED DOWN TOWARD BOTTOM OF BED. PT REPOSITIONED. HOB ELEVATED. ATIVAN AT 2030 ONLY MILDLY EFFECTIVE FOR AGITATION. DR HAWTHORNE HERE...NOTIFIED THAT PT HR IN 120'S.
[2019-01-12] VITALS: BP 155/83
--- NOTE | 2019-01-12 02:26 | NUR ---
ATIVAN GIVEN AT 0125 FOR RESTLESSNESS, TACHYCARDIA AND TACHYPNEA NOT QUITE EFFECTIVE YET. HR 119/MIN, RR 30/MIN.
--- NOTE | 2019-01-12 02:46 | NUR ---
ATIVAN EFFECTIVE...PT DOZING. HR 108/MIN, RR 28/MIN.
[2019-01-12 04:00] VITALS: BP 162/88
--- NOTE | 2019-01-12 04:03 | NUR ---
ATIVAN GIVEN AT 0330 EFFECTIVE FOR RESTLESSNESS AND IMPROVES HR TO LOW 100'S, RR TO UPPER 20'S.
--- NOTE | 2019-01-12 04:56 | NUR ---
PT HAD BEEN MOANING, HR 140'S, RR 40/MIN. REMOVED FROM BIPAP AND PLACED ON NC4. APPEARS MORE RELAXED. MOUTH MOISTENED AGAIN WITH ICE CHIPS, HR DOWN TO 120'S, RR 30/MIN AND PULSE OX 94%.
--- NOTE | 2019-01-12 05:03 | NUR ---
DR MARINE KOHLER. INFORMED OF PT HR 140'S. SHE OK'D TO GIVE 10 AM DOSE OF LOPRESSOR NOW.
--- NOTE | 2019-01-12 05:21 | NUR ---
ATIVAN GIVEN AT [address] HAWTHORNE. SHE TOOK HER PO AM LOPRESSOR WITHOUT DIFFICULTY IN APPLESAUCE. SHE CRUNCHES ON ICE CHIPS WITHOUT PROBLEM WELL.
[2019-01-12 05:59] LABS: BASO % 0.2 % (0.0-1.0); EOS # 0.1 10*3/uL (0.0-0.4); EOS % 0.5 % (1.0-4.0); HEMATOCRIT 34.6 % (37.0-47.0); HEMOGLOBIN 11.6 g/dl (12.0-16.0); LYMPH % 10.8 % (27.0-41.0); MEAN CELL VOLUME 95.3 fl (81.0-99.0); MEAN CORPUSCULAR HGB CONC 33.5 g/dl (33.0-37.0); MEAN PLATELET VOLUME 10.5 fl (9.6-12.3); MONO # 0.7 10*3/uL (0.1-1.0); MONO % 3.7 % (3.0-9.0); NEUT # 15.3 10*3/uL (2.3-7.9); NEUT % 83.6 % (47.0-73.0); PLATELET COUNT AUTOMATED 248 10*3/uL (130-400); RED BLOOD COUNT 3.63 10*6/uL (4.10-5.10); RED CELL DISTRI WIDTH 12.9 % (0-14.5); WHITE BLOOD COUNT 18.3 10*3/uL (4.8-10.8)
--- NOTE | 2019-01-12 06:05 | NUR ---
PTT 41.2 HEPARIN GTT INCREASED 2 UNITS/KG/HR TO 18. NEXT PTT AT 12 NOON.
[2019-01-12 06:06] LABS: ALBUMIN 2.3 gm/dl (3.1-4.5); ALKALINE PHOSPHATASE 242 U/L (45-117); BUN 21 mg/dl (7-24); CHLORIDE 106 mmol/L (98-107); CREATININE 0.86 mg/dL (0.55-1.02); PHOSPHOROUS 3.7 mg/dL (2.5-4.9); POTASSIUM 3.5 mmol/L (3.5-5.1); SGOT/AST 14 IU/L (3-35); SGPT/ALT 43 U/L (12-78); SODIUM 139 mmol/L (136-145)
[2019-01-12 06:14] LABS: TOTAL PROTEIN 6.7 gm/dL (6.4-8.2)
--- NOTE | 2019-01-12 08:15 | NUR ---
PT ALERT TO PERSON ONLY AT THIS TIME. PT MAONING BUT UNABLE TO TELL ME WHY. VSS. BILATERAL I/E WHEEZING NOTED THROUGHOUT LUNG FIEDLS. OCCASIONAL MOIST COUGH NOTED. ABD SOFT WITH ACTIVE BOWEL SOUNDS. ALPA HERNÁNDEZ FOR STRAW COLORED URINE. DR ERVIN IN TO SEE PT. SHE ORDERED FOR PT TO HAVE PRN ATIVAN. ATIVAN GIVEN PER ORDER.
--- NOTE | 2019-01-12 08:35 | NUR ---
PT RESTING BETTER. EARLIER ATIVAN EFFECTIVE.
--- NOTE | 2019-01-12 10:06 | NUR ---
PT'S IN TO VISIT. UPDATED HIM ON PT'S CONDITIONA ND PLAN OF CARE. HIS QUESTIONS WERE ANSWERED.
--- NOTE | 2019-01-12 11:40 | NUR ---
PT RESTLESS,AGITATED AND MOANING. PT AND FAMILY AGREED FOR PRN ATIVAN. MEDICATED PT PER PRN ORDER WITH IV ATIVAN.
--- NOTE | 2019-01-12 12:35 | NUR ---
PT CONTIUES TO MOAN. FAMILY AT BEDSIDE. EARLEIR ATIVAN DOES NOT SEEM EFFECTIVE.
--- NOTE | 2019-01-12 15:11 | NUR ---
MEDICATED PT PER ONE TIME ORDER WITH MORPHINE IV FOR PT'S C/O GENERALIZED PAIN. PT IS UNABLE TO RATE PAIN ON PAIN SCALE AT THIS TIME. PT'S FAMILY REMAINS AT BEDSIDE.
--- NOTE | 2019-01-12 15:45 | NUR ---
PT RESTING WELL. EARLIER MORPHINE EFFECTIVE.
[2019-01-12 16:00] VITALS: BP 138/84
--- NOTE | 2019-01-12 17:56 | NUR ---
MEDICATED PT PER PRN ORDER WITH IV ATIVAN FOR PT'S INCREASED AGITATION AND RESTLESSNESS. DR ERVIN AND DR STONE INT O SEE PT. UPDATED THEM ON PT'S CONDITIONA ND PLAN OF CARE. NEW ORDERS RECEIVED.
--- NOTE | 2019-01-12 18:04 | NUR ---
PT RESTING. EARLIER ATIVAN EFFECTIVE.
--- NOTE | 2019-01-12 18:52 | NUR ---
CHART CHECK COMPLETE.
--- NOTE | 2019-01-12 19:13 | NUR ---
PTT 54.1. NO CHANGE IN HEPARIN GTT PER HEPARIN PROTOCOL. NEXT PTT IN AM.
[2019-01-12 20:00] VITALS: BP 139/83
[2019-01-12 21:00] VITALS: BP 112/57
--- NOTE | 2019-01-12 21:14 | NUR ---
DILAUDID GIVEN AT 2039 FOR PT MOANING AND SAYING "YES" WHEN ASKED IF IN PAIN. EFFECTIVE. PT DOZING, HR 107/MIN, RR 20/MIN, PULSE OX 96%.
[2019-01-13] VITALS: BP 107/68
--- NOTE | 2019-01-13 02:43 | NUR ---
PT SLEEPING. HR 90'S, RR 19/MIN, PULSE OX 98%.
--- NOTE | 2019-01-13 02:46 | NUR ---
MORPHINE WAS EFFECTIVE...PT DOZING, BUT AWAKENS EASILY. BODY RELAXED.
[2019-01-13 03:18] VITALS: BP 117/81
--- NOTE | 2019-01-13 03:19 | NUR ---
DILAUDID GIVEN AT 0250 FOR RESTLESSNESS/DISCOMFORT WAS EFFECTIVE. PT DOZING...AWAKENS TO VOICE...BODY RELAXED.
[2019-01-13 06:15] LABS: BASO % 0.1 % (0.0-1.0); EOS % 0.3 % (1.0-4.0); HEMATOCRIT 32.1 % (37.0-47.0); HEMOGLOBIN 10.5 g/dl (12.0-16.0); LYMPH # 2.1 10*3/uL (1.3-4.4); LYMPH % 14.7 % (27.0-41.0); MEAN CELL VOLUME 97.3 fl (81.0-99.0); MEAN CORPUSCULAR HGB 31.8 pg (27.0-31.0); MEAN CORPUSCULAR HGB CONC 32.7 g/dl (33.0-37.0); MEAN PLATELET VOLUME 10.5 fl (9.6-12.3); MONO # 0.6 10*3/uL (0.1-1.0); MONO % 4.5 % (3.0-9.0); NEUT % 79.2 % (47.0-73.0); PLATELET COUNT AUTOMATED 268 10*3/uL (130-400); RED CELL DISTRI WIDTH 13.4 % (0-14.5)
[2019-01-13 06:29] LABS: ALBUMIN 2.3 gm/dl (3.1-4.5); BUN 29 mg/dl (7-24); CHLORIDE 110 mmol/L (98-107); CREATININE 0.74 mg/dL (0.55-1.02); POTASSIUM 4.1 mmol/L (3.5-5.1); SGOT/AST 21 IU/L (3-35); SGPT/ALT 39 U/L (12-78); SODIUM 142 mmol/L (136-145)
[2019-01-13 06:32] LABS: ALKALINE PHOSPHATASE 202 U/L (45-117); PHOSPHOROUS 4.3 mg/dL (2.5-4.9); TOTAL PROTEIN 6.5 gm/dL (6.4-8.2)
--- NOTE | 2019-01-13 06:49 | NUR ---
PTT 57.1... NO CHANGE IN HEPARIN GTT PER PROTOCOL. NEXT PTT IN AM.
[2019-01-13 08:00] VITALS: BP 136/79
--- NOTE | 2019-01-13 08:46 | NUR ---
TURNED AND REPOSITIONED, DILUADID GIVEN FOR MOANING AND PT STATING "EVERYTHING HURTS", PT DOES NOT FOLLOW COMMANDS, DOES NOT ASSIST WITH TURNING, RESISTS REPOSITIONING, ARCHES HER BACK AND SCOOTS DOWN THE BED RIGHT AFTER BEING PULLED UP, PT DOES NOT SPONTANOUSLY OPEN EYES AND BARELY OPENS EYES WHEN PROMPTED, SKIN INTACT, LUNGS WITH A FEW RHONCHI, FEED YOGURT AND ICES FOR BREAKFAST, PT MAKES NO ATTEMP TO FEED SELF,PILLS CRUSHED AND GIVEN, ATIVAN GIVEN FOR DT'S, ZOFRAN GIVEN FOR POTENTIAL STOMACH UPSET
[2019-01-13 12:00] VITALS: BP 159/91
--- NOTE | 2019-01-13 13:01 | NUR ---
ATIVAN FOR RESTLESSNESS
--- NOTE | 2019-01-13 15:25 | NUR ---
PT HAD BEEN SOUND ASLEEP AND WAS AWOKEN BY FAMILY, PT NOW AGITATED, YELLING FOR HER 'MOMMY', HR 125, OX 89 DILUADID AND IV ATIVAN GIVEN, PT PLACED ON BIPAP AND PT HAS CALMED
[2019-01-13 16:00] VITALS: BP 134/74
--- NOTE | 2019-01-13 17:34 | NUR ---
PT FEED DINNER DR STONE HERE FOR POLICE SUPERINTENDENT AT 0715 TOMORROW, TO ARRIVE AT [facility] AT 830 FOR CATH
[2019-01-13 20:00] VITALS: BP 127/65
--- NOTE | 2019-01-13 20:05 | NUR ---
PATIENT VERY RESTLESS AND MOANING. TURNED AND RESPOSITIONED WITH NO RELIEF. PATIENT ALERT AND ORIENTED TO PERSON AND PLACE. AT BEDSIDE. PATIENT PERIODICALLY SAYING "FUCK". THEN PATIENT MUMBLES HER WORDS. ST PER CM-RATE 120'S.MEDICATED WITH ATIVAN AND DILAUDID PER PRN ORDERS. WILL CONTINUE TO MONITOR.
--- NOTE | 2019-01-13 22:44 | NUR ---
ATTEMPTING TO GIVE PATIENT A BEDBATH. PATIENT VERY RESTLESS. MEDICATED WITH ATIVAN AGAIN AT THIS TIME PER PRN ORDER. WILL CONTINUE TO MONITOR.
[2019-01-14] VITALS (8 sets, daily range): BP systolic 124–171; BP diastolic 68–95
--- NOTE | 2019-01-14 00:38 | NUR ---
PATIENT RESTLESS AND MOANING. CONTINOUSLY MOVING LEGS. MEDICATED WITH ATIVAN PER PRN ORDER.
--- NOTE | 2019-01-14 02:02 | NUR ---
PATIENT CONTINUING TO MOAN. ASKED PATIENT IF SHE IS HURTING AND SHE SAID YES. BUT WHEN RN ASKED FURTHER QUESTIONS SHE DID NOT ANSWER. MEDICATED WITH DILAUDID PER PRN ORDER.
--- NOTE | 2019-01-14 06:41 | NUR ---
Pt. has not been instructed on flutter or I/S, due to her medical condition.
--- NOTE | 2019-01-14 07:00 | NUR ---
REPORT CALLED BY RN TO [facility].
--- NOTE | 2019-01-14 07:20 | NUR ---
STAFF MEMBER FROM [facility] [employer] CALLED AND STATED THAT THEY REFUSE TO TAKE PT FOR HEART CATH R/T PT'S OTHER PROBLEMS (ALCOHOL WITHDRAWL AND RESP. ISSUES.) ADMINISTRATIVE TECH WHO WOULD DUE THE HEART CATH STATES PT IS NOT APPROPRIATE AT THIS TIME FOR HEART CATH. PT'S FAMILY , AMBULANCE, DOCTORS AND CYBER OPERATOR NOTIFIED.
--- NOTE | 2019-01-14 08:05 | NUR ---
PT C/O PAIN "ALL OVER" WHEN ASKED. MEDICATED PT PER PRN ORDER WITH DILAUDID.
--- NOTE | 2019-01-14 08:35 | NUR ---
PT RESTING. EARLLIER DILAUDID EFFECTIVE.
--- NOTE | 2019-01-14 08:40 | NUR ---
DR ATKINSON IN TO SEE PT. UPDATED HIM ON [employer] REFUSING TO TAKE PT.
--- NOTE | 2019-01-14 08:55 | NUR ---
DR GALE CALLED AND NOTIFIED OF CONSULT. DR GALE IN TO SEE PT. DR ATKINSON IN WHILE DR GALE IN TO SEE PT. NEW ORDERS RECEIVED.
--- NOTE | 2019-01-14 09:11 | NUR ---
DR NIETO IN TO SEE PT. UPDATED HIM ON PT'S CONDITION AND PLAN OF CARE.
[2019-01-14 09:13] LABS: BASO % 0.1 % (0.0-1.0); EOS % 0.2 % (1.0-4.0); HEMATOCRIT 32.5 % (37.0-47.0); HEMOGLOBIN 10.8 g/dl (12.0-16.0); LYMPH # 1.5 10*3/uL (1.3-4.4); LYMPH % 12.2 % (27.0-41.0); MEAN CELL VOLUME 99.1 fl (81.0-99.0); MEAN CORPUSCULAR HGB 32.9 pg (27.0-31.0); MEAN CORPUSCULAR HGB CONC 33.2 g/dl (33.0-37.0); MEAN PLATELET VOLUME 10.3 fl (9.6-12.3); MONO # 0.7 10*3/uL (0.1-1.0); MONO % 5.4 % (3.0-9.0); NEUT % 80.7 % (47.0-73.0); PLATELET COUNT AUTOMATED 293 10*3/uL (130-400); RED BLOOD COUNT 3.28 10*6/uL (4.10-5.10); RED CELL DISTRI WIDTH 13.5 % (0-14.5); WHITE BLOOD COUNT 12.4 10*3/uL (4.8-10.8)
[2019-01-14 09:17] LABS: ABG BASE EXCESS -0.8 mmol/L (-2.0-2.0); ABG HCO3 23.7 mmol/l (22-26); ABG O2 SATURATION 99.5 % (95-97); ARTERIAL BLOOD GAS PCO2 40.4 mmHg (35-45); ARTERIAL BLOOD GAS PH 7.385 (7.35-7.45)
[2019-01-14 09:31] LABS: ALBUMIN 2.4 gm/dl (3.1-4.5); ALKALINE PHOSPHATASE 179 U/L (45-117); BUN 31 mg/dl (7-24); CHLORIDE 113 mmol/L (98-107); CREATININE 0.81 mg/dL (0.55-1.02); POTASSIUM 4.3 mmol/L (3.5-5.1); SGOT/AST 11 IU/L (3-35); SGPT/ALT 43 U/L (12-78); SODIUM 146 mmol/L (136-145); TOTAL PROTEIN 6.4 gm/dL (6.4-8.2)
--- NOTE | 2019-01-14 10:30 | NUR ---
Director Enterprise Sales in to see patient. She is not able to appropriately answer questions. Will follow up at a later time.
--- NOTE | 2019-01-14 11:17 | NUR ---
PT'S IN TO VISIT. UPDATED HIM ON PT'S CONDITION AND PLAN OF CARE.
--- NOTE | 2019-01-14 15:00 | NUR ---
PT AGITATED AND MOANING. PT THRASHING HEAD. MEDICATED PT PER PRN ORDER WITH ATIVAN. FAMILY AT BEDSIDE.
--- NOTE | 2019-01-14 15:54 | NUR ---
PT RESTING. EARLIER ATIVAN SEEMS EFFECTIVE AT THIS TIME.
--- NOTE | 2019-01-14 16:53 | NUR ---
PT'S HR 128. PT RESTLESS AND AGITATED AT THIS TIME. PT'S HERE. MEDICATED PT PER PRN ORDER WITH IV ATIVAN FOR PT'S AGITATION AND RESTLESSNESS.
--- NOTE | 2019-01-14 17:10 | NUR ---
PT'S HR 127 WITH RESP. RATE 33. POX 90% ON 30% FIO2. TYMPANIC TEMP 100.2 BP 171/90. PT THRASHING HEAD AND SHAKING. IV DILAUDID GIVEN PER ORDER. DR SANDOVAL UPDATED.
--- NOTE | 2019-01-14 17:26 | NUR ---
PT RESTING BETTER. HR 104, RR 17, BP 147/68. RESP. THERAPY HERE AND INCREASED FIO2 TO 35%. POX NOW 95%. PT'S HERE AND UPDATED ON PT'S CONDITION.
--- NOTE | 2019-01-14 18:40 | NUR ---
PT STILL RESTING. NO ACUTE DISTRESS NOTED.
--- NOTE | 2019-01-14 19:07 | NUR ---
PT REMOVED FROM BIPAP, PLACED ON NC4, REPOSITIONED TO BACK AND IN HIGH JACOBSON'S POSITION. FAMILY MEMBERS AT BEDSIDE. PT DROWSY BUT DOES ANSWER/FOLLOW INSTRUCTIONS. HR 110'S, PULSE OX 93%. RR 24/MIN.
--- NOTE | 2019-01-14 19:10 | NUR ---
CHART CHECK COMPLETE.
--- NOTE | 2019-01-14 19:37 | NUR ---
PT RELAXED. EYES CLOSED. HR MID 90'S, PULSE OX 97%, RR 19/MIN, BP 151/79.
--- NOTE | 2019-01-14 21:36 | NUR ---
ATIVAN WAS GIVEN AT 2034 FOR AGITATION...NOT YET EFFECTIVE HR IS 124/MIN AND PT MOANS DESPITE COMFORT MEASURES.
--- NOTE | 2019-01-14 22:35 | NUR ---
COMPLETE BATH AND BED LINEN CHANGE DONE.
--- NOTE | 2019-01-14 22:36 | NUR ---
ADDENDUM: DULCOLAX PO GIVEN WITH PM PILLS.
--- NOTE | 2019-01-14 22:51 | NUR ---
MEDICATED WITH DILAUDID FOR PT MOANING AND THRASHING HEAD SIDE TO SIDE.
--- NOTE | 2019-01-14 23:12 | NUR ---
DILAUDID EFFECTIVE...PT NOT MOANING. BODY RELAXED, HR 103/MIN, RR 17/MIN, PULSE OX 99-100%.
[2019-01-15] VITALS (12 sets, daily range): BP systolic 112–185; BP diastolic 71–118
--- NOTE | 2019-01-15 02:34 | NUR ---
ATIVAN GIVEN AT 0145 FOR RESTLESSNESS NOT EFFECTIVE...PT CONTINUES TO MOAN, RR 30/MIN AND HR 130/MIN. PULSE OX 94%.
--- NOTE | 2019-01-15 02:56 | NUR ---
DRS NOTIFIED OF PT HR 130'S, CONSTANT MOANING, RR 30'S, MEDICATIONS GIVEN AND THOSE THAT HAVE BEEN EFFECTIVE.
--- NOTE | 2019-01-15 03:04 | NUR ---
ONE TIME 1MG IV ATIVAN GIVEN FOR AGITATION/MOANING/TACHYCARDIA/TACHYPNEA.
--- NOTE | 2019-01-15 03:16 | NUR ---
ATIVAN NOT EFFECTIVE. HR 132/MIN, RR 30/MIN, PT MOANING AND TURNING HEAD SIDE TO SIDE. SHE WILL NOT ANSWER ME WHEN I ASK HER QUESTIONS.
--- NOTE | 2019-01-15 03:40 | NUR ---
DR CHINCHILLA NOTIFIED OF TEMP 100.2 AND MANUAL BP OF 164/106 ALONG WITH CONTINUED MOANING.
--- NOTE | 2019-01-15 03:42 | NUR ---
DR CHINCHILLA NOTIFIED THAT PT UNABLE TO DRINK CONTRAST.
--- NOTE | 2019-01-15 04:12 | NUR ---
AT 0350 ADDITIONAL IV ATIVAN ORDERED AND TO CAT SCAN FOR ABDOMEN/PELVIS AT 0355 AND BACK TO ICU AT 0409. PT CONTINUES TO MOAN AND HR REMAINS 132/MIN. PULSE OX 995% ON NC4 AND RR28/MIN.
--- NOTE | 2019-01-15 04:45 | NUR ---
DR HAWTHORNE AT BEDSIDE. RESULTS REVIEWED. DULCOLAX SUPPOSITORY GIVEN ORDERED.
--- NOTE | 2019-01-15 05:20 | NUR ---
URINE SPECIMEN SENT ORDERED. DILAUDID GIVEN AT 0505 WAS EFFECTIVE...PT NO LONGER MOANING, HR 108/MIN, RR 18/MIN AND PULSE OX 99% ON NC4. BODY RELAXED.
[2019-01-15 05:23] LABS: BILIRUBIN NEGATIVE (NEGATIVE); BLOOD 3+ (NEGATIVE); CLARITY SL CLOUDY (CLEAR); COLOR YELLOW (YELLOW); GLUCOSE NEGATIVE (NEGATIVE); KETONE NEGATIVE (NEGATIVE); LEUKO ESTERASE NEGATIVE (NEGATIVE); NITRITE NEGATIVE (NEGATIVE); UROBILINOGEN 0.2 E.U./dl (0.2-1.0)
[2019-01-15 05:34] LABS: ALBUMIN 2.7 gm/dl (3.1-4.5); ALKALINE PHOSPHATASE 192 U/L (45-117); BUN 37 mg/dl (7-24); CHLORIDE 114 mmol/L (98-107); CREATININE 0.99 mg/dL (0.55-1.02); PHOSPHOROUS 3.4 mg/dL (2.5-4.9); POTASSIUM 4.3 mmol/L (3.5-5.1); SGOT/AST 21 IU/L (3-35); SGPT/ALT 42 U/L (12-78); SODIUM 148 mmol/L (136-145)
[2019-01-15 06:02] LABS: BACTERIA 1+; RBC 41-50 rbc/hpf (0-2)
[2019-01-15 06:25] LABS: BASO % 0.2 % (0.0-1.0); HEMATOCRIT 34.9 % (37.0-47.0); HEMOGLOBIN 11.7 g/dl (12.0-16.0); LYMPH # 1.8 10*3/uL (1.3-4.4); LYMPH % 11.7 % (27.0-41.0); MEAN CORPUSCULAR HGB 33.5 pg (27.0-31.0); MEAN CORPUSCULAR HGB CONC 33.5 g/dl (33.0-37.0); MEAN PLATELET VOLUME 10.8 fl (9.6-12.3); MONO # 0.9 10*3/uL (0.1-1.0); MONO % 5.5 % (3.0-9.0); NEUT # 12.6 10*3/uL (2.3-7.9); NEUT % 81.2 % (47.0-73.0); NUCLEATED RED BLOOD CELL 0.3 % (0.0-0.0); RED BLOOD COUNT 3.49 10*6/uL (4.10-5.10); RED CELL DISTRI WIDTH 13.8 % (0-14.5); WHITE BLOOD COUNT 15.5 10*3/uL (4.8-10.8)
[2019-01-15 06:34] LABS: PLATELET COUNT AUTOMATED 391 10*3/uL (130-400)
--- NOTE | 2019-01-15 07:43 | NUR ---
ON ASSESSMENT PATIENT IS LISTLESS, MOANING. DR GRIGSBY ET AL IN TO SEE PT. ATTEMPTS TO GET HER TO SAY HER NAME OR ANSWER ANYTHING OTHER THAN MOANING UNSUCCESSFUL. MONITOR REMAINS SINUS TACHY IN 120'S. PULSE OX UPPER 90'S ON NASAL CANNULA AT 4L/MIN. HEPARIN DRIP CONTINUES AT 20UNITS/KG/MIN. TODAYS PTT THERAPEUTIC.
--- NOTE | 2019-01-15 07:43 | NUR ---
Shift chart check completed.24 HR chart check completed.
--- NOTE | 2019-01-15 08:13 | NUR ---
IV LOPRESSOR 5MG FOR HR 120-130'S.
--- NOTE | 2019-01-15 09:00 | NUR ---
Assembler Bicycle in to see patient. She is moaning and unable to answer questions. No family at the bedside. Discharge plan undecided.
--- NOTE | 2019-01-15 09:38 | NUR ---
KULWANT GALVEZ,EMILIA AND SHAHLA HAVE ALL VISITED. LOPRESSOR IV WAS REPEATED AT 0846. HAS ARRIVED. DR KAUR SPOKE WITH HIM ABOUT THE PLAN OF CARE.
--- NOTE | 2019-01-15 10:26 | NUR ---
DR KAUR MADE AWARE OF PERSISTENT HYPERTENSION. DR [facility] ORDERS ENTERED.
--- NOTE | 2019-01-15 10:35 | NUR ---
IV HYDRALAZINE 5MG GIVEN PER ORDER.
--- NOTE | 2019-01-15 11:14 | NUR ---
IV DILAUDID 0.5MG FOR CONTINUAL MOANING AND RESTLESSNESS. HEPARIN DRIP D/C PER ORDER.
--- NOTE | 2019-01-15 11:24 | NUR ---
MOANING HAS SIGNIFICANTLY DECREASED SINCE EARLIER IV DILAUDID. BP AFTER HYDRALAZINE AND DILAUDID HAS DECREASED TO 169/87.
--- NOTE | 2019-01-15 11:40 | NUR ---
Spoke to , Mark, at [phone] regarding discharge planning. Discussed LTAC vs SNF. If she needs to go to a SNF he would like [facility]. In discussing LTAC he states "the doctors don't even know what is wrong with her now how are they going to send her somewhere else. What about [facility]?" Answered questions to the best of my knowledge. Informed she is not able to go to [facility] until she is more stable. He states "how about for now we just focus on keeping her alive?"
--- NOTE | 2019-01-15 11:48 | NUR ---
TURNED, RECTAL TEMP OBTAINED. 101.4. ASPIRIN SUPPOSITORY GIVEN PER ORDER. SHE HAD BEEN INCONTINENT SMALL, MUSHY BM. ATTEMPTED TO COMB HER HAIR, ITS MATTED. PLACED SHAMPOO CAP.
--- NOTE | 2019-01-15 12:19 | NUR ---
SPEECH PATHOLOGY Orders for swallowing evaluation received and chart review completed. This was ordered due to suspected aspiration. Clinician arrived on ICCU and patient was noted to be in bed, lethargic and moaning. Consulted with patient's nurse who reported that patient has displayed poor response and inability to follow commands. Due to status, swallowing evaluation was unable to be completed at this time. Will continue to monitor status and proceed with evaluation when appropriate. Patient's nurse verbalized understanding and agreement with plan. Thank you for this referral. JOHNNY NICOLAS MSCCC-[facility] KITTER
--- NOTE | 2019-01-15 14:24 | NUR ---
Called to ICU to speak with . Discussed LTAC and he is going to do some research. Informed of local facilities [facility] in [place], [facility] in [place], and [facility] in [place]. He will get in touch with CM after he reviews the above facilities.
--- NOTE | 2019-01-15 17:44 | NUR ---
TEMP DOWN TO 100.2 RECTAL. PT MOANS FREQUENTLY. DOES NOT OPEN EYES OR RESPOND VERBALLY. AT 1729 IV DILAUDID REPEATED. SHE GETS QUIET BRIEFLY. AT BEDSIDE. I'M STILL ATTEMPTING TO UNTANGLE HER HAIR. HR >120 AT ALL TIMES.
--- NOTE | 2019-01-15 18:10 | NUR ---
HER HR COMES DOWN SLIGHTLY AFTER THE DILAUDID BUT SHE STILL MOANS FREQUENTLY. NO SEIZURE ACTIVITY.
--- NOTE | 2019-01-15 20:05 | NUR ---
T 101.1 T, 100.7 R. MEDICATED WITH TYLENOL PER PRN ORDER FOR TEMP.
--- NOTE | 2019-01-15 20:30 | NUR ---
DR HAWTHORNE INFORMED OF BP 172/98 AND HR 130. ORDERED TO GIVE LOPRESSOR 5MG IV NOW FROM PRN ORDER.
--- NOTE | 2019-01-15 21:00 | NUR ---
PT RAMIRO CALLED IN REQUESTING TO HAVE PT TRANSFERRED. PT INFORMED HE WOULD HAVE TO TALK TO A DOCTOR. INFORMED MR COLON THAT I WOULD GIVE THE DOCTOR HIS NUMBER AND HAVE HER CALL HIM. DR HAWTHORNE NOTIFIED OF CALL FROM AND GIVEN HIS NUMBER.
--- NOTE | 2019-01-15 22:06 | NUR ---
PT CONTINUES TO MOAN AND HR IN 120'S AND RESP 20-30'S. DR HAWTHORNE NOTIFIED AND ORDERED TO GIVE DILAUDID 0.5MG IV NOW FROM PRN ORDER. BP 173/95 AT THIS TIME.
--- NOTE | 2019-01-15 22:10 | NUR ---
DR HAWTHORNE NOTIFIED OF BP 173/95 AND HR 111. ORDERED TO GIVE ANOTHER DOSE OF LOPRESSOR 5MG IV NOW FROM PRN ORDER.
--- NOTE | 2019-01-15 23:40 | NUR ---
PT HAD A 35 BEAT RUN OF V TACH, HR WENT TO 210 THEN DOWN TO 80 PER MANAGER OF PRODUCT. HR AT THIS TIME IS 103. DR HAWTHORNE NOTIFIED.
[2019-01-16] VITALS: BP 131/73
[2019-01-16 01:09] LABS: BUN 37 mg/dl (7-24); CHLORIDE 119 mmol/L (98-107); POTASSIUM 4.5 mmol/L (3.5-5.1); SODIUM 150 mmol/L (136-145)
--- NOTE | 2019-01-16 01:15 | NUR ---
DR HAWTHORNE NOTIFIED OF TROPONIN 3.150.
--- NOTE | 2019-01-16 02:45 | NUR ---
DR HAWTHORNE NOTIFIED OF BP 166/100 AND HR 132. ORDERED TO GIVE LOPRESSOR 5MG IV NOW. ALSO MEDICATED WITH ATIVAN 0.5MG IV PER PRN ORDER FOR AGITATION.
--- NOTE | 2019-01-16 03:00 | NUR ---
MEDICATED WITH TYLENOL SUPPOSITORY PER PRN ORDER FOR T 101.1.
[2019-01-16 04:00] VITALS: BP 162/90
--- NOTE | 2019-01-16 04:00 | NUR ---
MEDICATED WITH DILAUDID PER PRN ORDER FOR S/S OF PAIN.
--- NOTE | 2019-01-16 04:35 | NUR ---
PT TRANSFERRED OUT BY [facility] TO [facility]. ALL PAPERWORK AND BELONGINGS SENT WITH PATIENT. REPORT CALLED TO JOSE G DAMIAN AND NOTIFIED.
== END 2019-01-16 04:35 | disposition short-term general hospital (02) | DRG 871 ==
LOC: ED 19:50 → ICCU 23:53
PROVIDERS: Internal Medicine; Internal Medicine Critical Care Medicine; Physician Assistant; Student in an Organized Health Care Education/Training Program; ADMIT Internal Medicine
PROC: 5A09357 Assistance with Respiratory Ventilation, Less than 24 Consecutive Hours, Continuous Positive Airway Pressure (ICD-10-PCS; principal; 2019-01-11)
PROC: 5A09357 Assistance with Respiratory Ventilation, Less than 24 Consecutive Hours, Continuous Positive Airway Pressure (ICD-10-PCS; 2019-01-12)
PROC: 5A09357 Assistance with Respiratory Ventilation, Less than 24 Consecutive Hours, Continuous Positive Airway Pressure (ICD-10-PCS; 2019-01-13)
PROC: 5A09357 Assistance with Respiratory Ventilation, Less than 24 Consecutive Hours, Continuous Positive Airway Pressure (ICD-10-PCS; 2019-01-13)
DX: A41.9 Sepsis, unspecified organism (principal); I21.4 Non-ST elevation (NSTEMI) myocardial infarction; E43 Unspecified severe protein-calorie malnutrition; J96.01 Acute respiratory failure with hypoxia; J69.0 Pneumonitis due to inhalation of food and vomit; G93.41 Metabolic encephalopathy; E87.1 Hypo-osmolality and hyponatremia; J44.1 Chronic obstructive pulmonary disease with (acute) exacerbation; F10.231 Alcohol dependence with withdrawal delirium; I47.2 Ventricular tachycardia; Z68.1 Body mass index [BMI] 19.9 or less, adult; R65.20 Severe sepsis without septic shock; I11.0 Hypertensive heart disease with heart failure; I50.9 Heart failure, unspecified; R91.8 Other nonspecific abnormal finding of lung field; R59.0 Localized enlarged lymph nodes; K57.90 Diverticulosis of intestine, part unspecified, without perforation or abscess without bleeding; R73.9 Hyperglycemia, unspecified; I27.20 Pulmonary hypertension, unspecified; R74.0 Nonspecific elevation of levels of transaminase and lactic acid dehydrogenase [LDH]; R31.21 Asymptomatic microscopic hematuria; F12.90 Cannabis use, unspecified, uncomplicated; K59.00 Constipation, unspecified; E78.5 Hyperlipidemia, unspecified; F17.210 Nicotine dependence, cigarettes, uncomplicated; E86.0 Dehydration; E87.8 Other disorders of electrolyte and fluid balance, not elsewhere classified; I73.9 Peripheral vascular disease, unspecified; Z88.0 Allergy status to penicillin; Z71.6 Tobacco abuse counseling; Z95.5 Presence of coronary angioplasty implant and graft; Z83.3 Family history of diabetes mellitus; Z85.038 Personal history of other malignant neoplasm of large intestine; Z82.49 Family history of ischemic heart disease and other diseases of the circulatory system; Z79.899 Other long term (current) drug therapy

== ENCOUNTER → 2019-06-21 | Outpatient (CLI) | payer BC ==
[~2019-06-21] MED LIST: CLOPIDOGREL75 MG PO; LISINOPRIL10 M1 PO; METOPROLOL TAR100 M1 PO
== END | disposition home or self-care (01) ==
LOC: RAD 12:20
DX: M24.522 Contracture, left elbow (principal); M24.521 Contracture, right elbow

== ENCOUNTER 2019-07-30 15:24 | Emergency (ER) | payer BC ==
[~2019-07-30] VITALS: Ht 167.6 cm; Wt 61.2 kg
[2019-07-30 16:27] LABS: BASO # 0.1 10*3/uL (0.0-0.1); BASO % 0.6 % (0.0-1.0); EOS # 0.2 10*3/uL (0.0-0.4); EOS % 2.6 % (1.0-4.0); HEMOGLOBIN 11.7 g/dl (12.0-16.0); LYMPH # 1.8 10*3/uL (1.3-4.4); LYMPH % 22.7 % (27.0-41.0); MEAN CORPUSCULAR HGB 30.2 pg (27.0-31.0); MEAN CORPUSCULAR HGB CONC 32.5 g/dl (33.0-37.0); MEAN PLATELET VOLUME 9.9 fl (9.6-12.3); MONO # 0.5 10*3/uL (0.1-1.0); MONO % 6.4 % (3.0-9.0); NEUT # 5.3 10*3/uL (2.3-7.9); NEUT % 67.4 % (47.0-73.0); PLATELET COUNT AUTOMATED 304 10*3/uL (130-400); RED BLOOD COUNT 3.87 10*6/uL (4.10-5.10); RED CELL DISTRI WIDTH 13.8 % (0-14.5); WHITE BLOOD COUNT 7.8 10*3/uL (4.8-10.8)
[2019-07-30 16:40] LABS: INTERNATIONAL NORM RATIO 0.9 (2.0-3.5)
[2019-07-30 16:41] LABS: ALBUMIN 3.8 gm/dl (3.1-4.5); ALKALINE PHOSPHATASE 118 U/L (45-117); BUN 20 mg/dl (7-24); CHLORIDE 106 mmol/L (98-107); POTASSIUM 4.1 mmol/L (3.5-5.1); SGOT/AST 11 IU/L (3-35); SGPT/ALT 23 U/L (12-78); SODIUM 138 mmol/L (136-145); TOTAL PROTEIN 7.1 gm/dL (6.4-8.2)
== END 2019-07-30 16:59 | disposition home or self-care (01) ==
LOC: ED 15:24
PROVIDERS: Nurse Practitioner Family
DX: M79.662 Pain in left lower leg (principal); I10 Essential (primary) hypertension; F17.200 Nicotine dependence, unspecified, uncomplicated; Z88.0 Allergy status to penicillin; Z79.899 Other long term (current) drug therapy; Z86.73 Personal history of transient ischemic attack (TIA), and cerebral infarction without residual deficits

== ENCOUNTER → 2019-09-04 | Outpatient (CLI) | payer BC | END | disposition home or self-care (01) | LOC: US 14:56 | DX: E04.1 Nontoxic single thyroid nodule (principal); R13.10 Dysphagia, unspecified; R49.0 Dysphonia ==

== ENCOUNTER → 2019-09-30 | Outpatient (CLI) | payer BC ==
[2019-09-30 12:33] LABS: BASO # 0.1 10*3/uL (0.0-0.1); BASO % 0.8 % (0.0-1.0); EOS # 0.2 10*3/uL (0.0-0.4); EOS % 3.6 % (1.0-4.0); HEMATOCRIT 39.9 % (37.0-47.0); HEMOGLOBIN 12.9 g/dl (12.0-16.0); LYMPH # 1.6 10*3/uL (1.3-4.4); LYMPH % 24.6 % (27.0-41.0); MEAN CELL VOLUME 94.8 fl (81.0-99.0); MEAN CORPUSCULAR HGB 30.6 pg (27.0-31.0); MEAN CORPUSCULAR HGB CONC 32.3 g/dl (33.0-37.0); MEAN PLATELET VOLUME 10.3 fl (9.6-12.3); MONO # 0.5 10*3/uL (0.1-1.0); MONO % 6.8 % (3.0-9.0); NEUT # 4.2 10*3/uL (2.3-7.9); NEUT % 63.9 % (47.0-73.0); PLATELET COUNT AUTOMATED 299 10*3/uL (130-400); RED BLOOD COUNT 4.21 10*6/uL (4.10-5.10); RED CELL DISTRI WIDTH 12.9 % (0-14.5); WHITE BLOOD COUNT 6.6 10*3/uL (4.8-10.8)
[2019-09-30 12:50] LABS: ALBUMIN 3.7 gm/dl (3.1-4.5); BUN 18 mg/dl (7-24); CHLORIDE 103 mmol/L (98-107); CHOLESTEROL 130 mg/dL (<200); CREATININE 0.81 mg/dL (0.55-1.02); POTASSIUM 3.9 mmol/L (3.5-5.1); SGOT/AST 12 IU/L (3-35); SODIUM 139 mmol/L (136-145); TRIGLYCERIDES 96 mg/dl (<150); VLDL CHOLESTEROL 19 mg/dL (6-40)
[2019-09-30 13:00] LABS: ALKALINE PHOSPHATASE 124 U/L (45-117); HDL CHOLESTEROL 57 mg/dl (40-60); LDL CHOLESTEROL 54 mg/dL (9-159); SGPT/ALT 27 U/L (12-78); TOTAL PROTEIN 6.9 gm/dL (6.4-8.2)
== END | disposition home or self-care (01) ==
LOC: LAB 11:32
PROVIDERS: Nurse Practitioner Family
DX: I21.4 Non-ST elevation (NSTEMI) myocardial infarction (principal); I63.9 Cerebral infarction, unspecified; G81.90 Hemiplegia, unspecified affecting unspecified side; I10 Essential (primary) hypertension; I73.9 Peripheral vascular disease, unspecified; I65.29 Occlusion and stenosis of unspecified carotid artery

== ENCOUNTER → 2019-10-22 | Outpatient (CLI) | payer BC ==
[~2019-10-22] MED LIST changes: +DILTIAZEM ER120 MG PO; +LAMOTRIGINE100 M2 MM; +LEXAPRO10 MG PO; +LIPITOR40 MG PO; +NATURE'S BLEND F1 MG PO; +NEIGHBOR PO; +PLAVIX75 M1 PO; +SEROQUEL25 MG PO
--- NOTE | ~2019-10-22 | ST ---
[place], [place] EXERCISE STRESS TEST REPORT [id number] UNIT #: [id number] ROOM: DOCTOR: MARCK LINCOLN MD BIRTHDATE: [birth year] DOS: 10/22/2019 LEXISCAN PORTION OF THE LEXISCAN CARDIOLITE Baseline cardiogram, sinus with left ventricular hypertrophy by voltage criteria, 0.4 mg of Lexiscan, duration of 10 seconds. With Lexiscan, no new EKG changes. No chest discomfort. Positive shortness of breath and nausea. Blood pressure and heart rate response were normal. Nuclear images will be reported separately. MARCK LINCOLN MD CM:STRESS:EXERCISE STRESS TEST REPORT [id number] MARCK LINCOLN MD
--- NOTE | 2019-10-22 07:13 | NUR ---
INFORMED CONSENT SIGNED FOR LEXISCAN STRESS TEST WITH DR. LINCOLN. RESTING EKG NSR HR 61, BP 148/92. PULSE OX 100% AND LUNGS CLEAR BILATERALLY. COMPLETED ONE MINUTE OF LEXISCAN PROTOCOL RECEIVING LEXISCAN 0.4MG VOER 10 SECONDS. RARE PVC'S NOTED WITH NON DIAGNOSTIC ST CHANGES. PT C/O NAUSEA. LAST RECOVERY HR 94, BP 122/74. WAITING NUCLEAR SCANNING IN STABLE CONDITION.
== END | disposition home or self-care (01) ==
LOC: CARD 01:26
DX: Z01.810 Encounter for preprocedural cardiovascular examination (principal); I10 Essential (primary) hypertension; E78.5 Hyperlipidemia, unspecified; R94.31 Abnormal electrocardiogram [ECG] [EKG]; Z86.73 Personal history of transient ischemic attack (TIA), and cerebral infarction without residual deficits

== ENCOUNTER → 2020-01-16 | Outpatient (CLI) | payer BC ==
[2020-01-16 16:06] LABS: BASO # 0.1 10*3/uL (0.0-0.1); BASO % 0.6 % (0.0-1.0); EOS # 0.2 10*3/uL (0.0-0.4); EOS % 2.7 % (1.0-4.0); HEMATOCRIT 38.6 % (37.0-47.0); HEMOGLOBIN 12.3 g/dl (12.0-16.0); LYMPH # 2.1 10*3/uL (1.3-4.4); LYMPH % 25.8 % (27.0-41.0); MEAN CELL VOLUME 93.5 fl (81.0-99.0); MEAN CORPUSCULAR HGB 29.8 pg (27.0-31.0); MEAN CORPUSCULAR HGB CONC 31.9 g/dl (33.0-37.0); MEAN PLATELET VOLUME 10.2 fl (9.6-12.3); MONO # 0.6 10*3/uL (0.1-1.0); MONO % 7.6 % (3.0-9.0); NEUT # 5.2 10*3/uL (2.3-7.9); NEUT % 63.2 % (47.0-73.0); PLATELET COUNT AUTOMATED 317 10*3/uL (130-400); RED BLOOD COUNT 4.13 10*6/uL (4.10-5.10); RED CELL DISTRI WIDTH 12.7 % (0-14.5); WHITE BLOOD COUNT 8.3 10*3/uL (4.8-10.8)
[2020-01-16 16:21] LABS: ALBUMIN 3.6 gm/dl (3.1-4.5); ALKALINE PHOSPHATASE 155 U/L (45-117); BUN 16 mg/dl (7-24); CHLORIDE 105 mmol/L (98-107); CHOLESTEROL 119 mg/dL (<200); CREATININE 0.83 mg/dL (0.55-1.02); HDL CHOLESTEROL 55 mg/dl (40-60); LDL CHOLESTEROL 45 mg/dL (9-159); POTASSIUM 4.2 mmol/L (3.5-5.1); SGOT/AST 9 IU/L (3-35); SGPT/ALT 21 U/L (12-78); SODIUM 139 mmol/L (136-145); TOTAL PROTEIN 7.2 gm/dL (6.4-8.2); TRIGLYCERIDES 97 mg/dl (<150); VLDL CHOLESTEROL 19 mg/dL (6-40)
== END | disposition home or self-care (01) ==
LOC: LAB 14:58
PROVIDERS: Nurse Practitioner Family
DX: I10 Essential (primary) hypertension (principal); E04.1 Nontoxic single thyroid nodule; E78.2 Mixed hyperlipidemia

== ENCOUNTER → 2020-10-26 | Outpatient (CLI) | payer BC | END | disposition home or self-care (01) | LOC: US 15:00 | PROVIDERS: ATTEND Nurse Practitioner Family | DX: E04.2 Nontoxic multinodular goiter (principal) ==

== ENCOUNTER → 2021-02-18 | Outpatient (CLI) | payer BC | END | disposition home or self-care (01) | LOC: MAMMO 03:42 | PROVIDERS: ATTEND Nurse Practitioner Family | DX: Z12.31 Encounter for screening mammogram for malignant neoplasm of breast (principal) ==

== ENCOUNTER → 2022-08-16 | Outpatient (CLI) | payer BC ==
[2022-08-16 07:51] LABS: BASO % 0.7 % (0.0-1.0); EOS # 0.1 10*3/uL (0.0-0.4); EOS % 2.3 % (1.0-4.0); HEMATOCRIT 43.4 % (37.0-47.0); LYMPH # 1.6 10*3/uL (1.3-4.4); LYMPH % 28.3 % (27.0-41.0); MEAN CELL VOLUME 90.6 fl (81.0-99.0); MEAN CORPUSCULAR HGB 30.1 pg (27.0-31.0); MEAN CORPUSCULAR HGB CONC 33.2 g/dl (33.0-37.0); MEAN PLATELET VOLUME 10.1 fl (9.6-12.3); MONO # 0.6 10*3/uL (0.1-1.0); MONO % 11.2 % (3.0-9.0); NEUT # 3.3 10*3/uL (2.3-7.9); NEUT % 57.3 % (47.0-73.0); PLATELET COUNT AUTOMATED 277 10*3/uL (130-400); RED BLOOD COUNT 4.79 10*6/uL (4.10-5.10); RED CELL DISTRI WIDTH 12.7 % (0-14.5); WHITE BLOOD COUNT 5.7 10*3/uL (4.8-10.8)
[2022-08-16 08:09] LABS: BUN 15 mg/dl (7-24); CHLORIDE 108 mmol/L (98-107); CHOLESTEROL 115 mg/dL (<200); CREATININE 0.88 mg/dL (0.55-1.02); POTASSIUM 4.1 mmol/L (3.5-5.1); SGOT/AST 14 IU/L (3-35); SGPT/ALT 24 U/L (12-78); SODIUM 139 mmol/L (136-145); TOTAL PROTEIN 7.3 gm/dL (6.4-8.2); TRIGLYCERIDES 66 mg/dl (<150)
[2022-08-16 08:10] LABS: ALKALINE PHOSPHATASE 137 U/L (45-117); LDL CHOLESTEROL 50 mg/dL (9-159)
== END | disposition home or self-care (01) ==
LOC: LAB 07:29
PROVIDERS: ATTEND Nurse Practitioner Family
DX: Z23 Encounter for immunization (principal); I10 Essential (primary) hypertension; E78.2 Mixed hyperlipidemia; Z86.73 Personal history of transient ischemic attack (TIA), and cerebral infarction without residual deficits

== ENCOUNTER → 2023-05-01 | Outpatient (CLI) | payer BC | END | disposition home or self-care (01) | LOC: MAMMO 01:09 | PROVIDERS: ATTEND Nurse Practitioner Family | DX: Z12.31 Encounter for screening mammogram for malignant neoplasm of breast (principal); Z13.820 Encounter for screening for osteoporosis; Z01.419 Encounter for gynecological examination (general) (routine) without abnormal findings; N64.89 Other specified disorders of breast; N63.11 Unspecified lump in the right breast, upper outer quadrant; M85.851 Other specified disorders of bone density and structure, right thigh; F10.21 Alcohol dependence, in remission; Z78.0 Asymptomatic menopausal state; Z87.42 Personal history of other diseases of the female genital tract ==

== ENCOUNTER → 2023-10-09 | Outpatient (CLI) | payer BC ==
[2023-10-09 10:20] LABS: BASO # 0.1 10*3/uL (0.0-0.1); BASO % 0.5 % (0.0-1.0); EOS # 0.2 10*3/uL (0.0-0.4); EOS % 1.7 % (1.0-4.0); HEMATOCRIT 43.2 % (37.0-47.0); LYMPH # 2.3 10*3/uL (1.3-4.4); LYMPH % 22.9 % (27.0-41.0); MEAN CELL VOLUME 91.5 fl (81.0-99.0); MEAN CORPUSCULAR HGB 29.9 pg (27.0-31.0); MEAN CORPUSCULAR HGB CONC 32.6 g/dl (33.0-37.0); MEAN PLATELET VOLUME 9.9 fl (9.6-12.3); MONO # 0.7 10*3/uL (0.1-1.0); NEUT # 6.6 10*3/uL (2.3-7.9); NEUT % 67.5 % (47.0-73.0); PLATELET COUNT AUTOMATED 318 10*3/uL (130-400); RED BLOOD COUNT 4.72 10*6/uL (4.10-5.10); RED CELL DISTRI WIDTH 12.6 % (0-14.5); WHITE BLOOD COUNT 9.8 10*3/uL (4.8-10.8)
[2023-10-09 10:48] LABS: ALKALINE PHOSPHATASE 112 U/L (46-116); BUN 11 mg/dl (9-23); CHLORIDE 102 mmol/L (98-107); CHOLESTEROL 121 mg/dL (<200); LDL CHOLESTEROL 47 mg/dL (9-159); POTASSIUM 3.6 mmol/L (3.4-5.1); SGPT/ALT 13 U/L (5-49); TOTAL PROTEIN 7.5 gm/dL (6.0-8.0); TRIGLYCERIDES 144 mg/dl (<150)
== END | disposition home or self-care (01) ==
LOC: LAB 09:56
PROVIDERS: ATTEND Nurse Practitioner Family
DX: I10 Essential (primary) hypertension (principal); E78.2 Mixed hyperlipidemia; G81.90 Hemiplegia, unspecified affecting unspecified side; Z86.73 Personal history of transient ischemic attack (TIA), and cerebral infarction without residual deficits

== ENCOUNTER → 2024-04-16 | Outpatient (CLI) | payer BC ==
[2024-04-16 08:05] LABS: BASO # 0.1 10*3/uL (0.0-0.1); BASO % 0.7 % (0.0-1.0); EOS # 0.2 10*3/uL (0.0-0.4); EOS % 2.4 % (1.0-4.0); LYMPH # 2.2 10*3/uL (1.3-4.4); LYMPH % 25.6 % (27.0-41.0); MEAN CELL VOLUME 91.3 fl (81.0-99.0); MEAN CORPUSCULAR HGB 29.9 pg (27.0-31.0); MEAN CORPUSCULAR HGB CONC 32.7 g/dl (33.0-37.0); MEAN PLATELET VOLUME 10.2 fl (9.6-12.3); MONO # 0.7 10*3/uL (0.1-1.0); NEUT # 5.2 10*3/uL (2.3-7.9); NEUT % 61.9 % (47.0-73.0); PLATELET COUNT AUTOMATED 305 10*3/uL (130-400); RED BLOOD COUNT 4.82 10*6/uL (4.10-5.10); RED CELL DISTRI WIDTH 12.7 % (0-14.5); WHITE BLOOD COUNT 8.4 10*3/uL (4.8-10.8)
[2024-04-16 08:40] LABS: ALKALINE PHOSPHATASE 112 U/L (46-116); BUN 14 mg/dl (9-23); CHLORIDE 102 mmol/L (98-107); CHOLESTEROL 132 mg/dL (<200); LDL CHOLESTEROL 66 mg/dL (9-159); POTASSIUM 3.5 mmol/L (3.4-5.1); SGPT/ALT 12 U/L (5-49); TOTAL PROTEIN 7.3 gm/dL (6.0-8.0); TRIGLYCERIDES 79 mg/dl (<150)
== END | disposition home or self-care (01) ==
LOC: LAB 07:36
PROVIDERS: ATTEND Nurse Practitioner Family
DX: I10 Essential (primary) hypertension (principal); E78.2 Mixed hyperlipidemia; R73.01 Impaired fasting glucose

== ENCOUNTER → 2024-09-18 | Outpatient (CLI) | payer BC | END | disposition home or self-care (01) | LOC: MAMMO 08-21 08:30 | PROVIDERS: ATTEND Nurse Practitioner Family | DX: Z12.31 Encounter for screening mammogram for malignant neoplasm of breast (principal); R92.343 Mammographic extreme density, bilateral breasts ==

== ENCOUNTER → 2024-10-09 | Outpatient (CLI) | payer BC ==
[2024-10-09 08:49] LABS: BASO # 0.1 10*3/uL (0.0-0.1); BASO % 0.7 % (0.0-1.0); EOS # 0.2 10*3/uL (0.0-0.4); HEMATOCRIT 43.3 % (37.0-47.0); MEAN CORPUSCULAR HGB 29.9 pg (27.0-31.0); MEAN CORPUSCULAR HGB CONC 33.3 g/dl (33.0-37.0); MEAN PLATELET VOLUME 10.2 fl (9.6-12.3); MONO # 0.5 10*3/uL (0.1-1.0); NEUT # 5.7 10*3/uL (2.3-7.9); NEUT % 66.8 % (47.0-73.0); PLATELET COUNT AUTOMATED 305 10*3/uL (130-400); RED BLOOD COUNT 4.81 10*6/uL (4.10-5.10); RED CELL DISTRI WIDTH 13.2 % (0-14.5); WHITE BLOOD COUNT 8.5 10*3/uL (4.8-10.8)
[2024-10-09 09:19] LABS: ALKALINE PHOSPHATASE 110 U/L (46-116); BUN 18 mg/dl (9-23); CHLORIDE 105 mmol/L (98-107); CHOLESTEROL 152 mg/dL (<200); LDL CHOLESTEROL 77 mg/dL (9-159); POTASSIUM 3.6 mmol/L (3.4-5.1); SGPT/ALT 17 U/L (5-49); TOTAL PROTEIN 7.7 gm/dL (6.0-8.0); TRIGLYCERIDES 120 mg/dl (<150)
== END | disposition home or self-care (01) ==
LOC: LAB 07:29
PROVIDERS: ATTEND Nurse Practitioner Family
DX: I10 Essential (primary) hypertension (principal); E78.2 Mixed hyperlipidemia; I21.4 Non-ST elevation (NSTEMI) myocardial infarction; Z86.73 Personal history of transient ischemic attack (TIA), and cerebral infarction without residual deficits

== ENCOUNTER → 2025-09-25 | Outpatient (CLI) | payer BC | END | disposition home or self-care (01) | LOC: MAMMO 02:36 | PROVIDERS: ATTEND Registered Nurse | DX: Z12.31 Encounter for screening mammogram for malignant neoplasm of breast (principal); R92.313 Mammographic fatty tissue density, bilateral breasts ==